=== PATIENT | female | born 1940 | race Caucasian/White ===

== ENCOUNTER → 2016-06-24 | Outpatient (CLI) | payer MEDICARE, MEDICAID ==
[~2016-06-24] MED LIST: BUPIVACAINE HCL 0.25% 30 ML VIAL As Ordered ONE; ISOVUE-M 300 61% 15ML VIAL (Q9967) As Ordered ONE; LIDOCAINE 1% SDV INJ 30 ML VIAL As Ordered ONE; TRIAMCINOLONE ACETONIDE SUSP 40 MG/ML VIAL (J3301) As Ordered ONE
--- NOTE | 2016-06-24 14:35 | REP ---
PARTIAL SI JOINT SERIES: Four views. HISTORY: SI joint injection for pain. 34 seconds of fluoroscopy time is reported. Findings: A sequence of four fluoroscopically obtained intraprocedural spot radiographs of the SI joints document needle position and contrast injection associated with SI joint injection procedure. Signed by Adolfo Henry MD 06/24/2016 02:42 P
--- NOTE | 2016-06-30 00:03 | ECWPNPC ---
PATIENT NAME: ARLINE NEAL : 1940 GENDER: FEMALE VISIT DATE: 06/24/2016 DISCHARGE DATE: 06/24/16 1127 VISIT LOCKED DATE TIME: PHYSICIAN: LUDIVINA BACON RESOURCE: LUDIVINA BACON REASON FOR APPOINTMENT 1. SIJ HISTORY OF PRESENT ILLNESS HISTORY OF PRESENT ILLNESS: PAIN THE PATIENT DESCRIBES THE PAIN... FALL RISK SCREENING: SCREENING :NO FALLS IN THE PAST YEAR CURRENT MEDICATIONS TAKING LEVOTHYROXINE SODIUM 88 MCG TABLET 1 TABLET ON AN EMPTY STOMACH IN THE MORNING ORALLY ONCE A DAY, NOTES: 06/24/16744 TAKING PRAVASTATIN SODIUM 40 MG TABLET 1 TABLET ORALLY ONCE A DAY, NOTES: 06/24/16744 TAKING FERROUS SULFATE 325 (65 FE) MG TABLET 1 TABLET ORALLY ONCE A DAY, NOTES: 06/18/16 0800 TAKING TRAMADOL HCL 50 MG TABLET 1 TAB ORALLY EVERY 6 HOURS NEEDED/MMD#4, NOTES: 06/24/16 0800 TAKING FOLIC ACID 1 MG TABLET ORALLY DAILY, NOTES: 06/24/16744 TAKING ALLOPURINOL 300 MG TABLET 1 TABLET ORALLY ONCE A DAY, NOTES: 06/24/16744 TAKING VITAMIN D 1000 UNIT TABLET 1 TABLET ORALLY ONCE A WEEK, NOTES: 06/18/16 0800 TAKING LISINOPRIL 20 MG TABLET 1 TABLET ORALLY ONCE A DAY, NOTES: 06/24/16744 TAKING OMEPRAZOLE 40 MG CAPSULE DELAYED RELEASE 1 CAPSULE ORALLY ONCE A DAY, NOTES: 06/24/16744 TAKING DOCUSATE SODIUM 100 MG CAPSULE 1 CAPSULE NEEDED ORALLY ONCE A DAY, NOTES: 06/23/16 2100 TAKING METOPROLOL SUCCINATE ER 25 MG TABLET EXTENDED RELEASE 24 HOUR 1 TABLET ORALLY ONCE A DAY, NOTES: 06/24/16 07 TAKING RANITIDINE HCL 150 MG CAPSULE 1 CAPSULE AT BEDTIME ORALLY ONCE A DAY, NOTES: 07/03/16 2300 TAKING METHOTREXATE 2.5 MG TABLET 6 TABLETS ORALLY EVERY MONDAY, NOTES: 06/15/16 0700 TAKING LAUREN ALLERGY 180 MG TABLET 1 TABLET NEEDED ORALLY ONCE A DAY, NOTES: 06/24/16 1700 TAKING TYLENOL EXTRA STRENGTH 500 MG TABLET 2 TABLETS NEEDED ORALLY EVERY 6 HRS, NOTES: > 2 WEEKS TAKING HUMIRA PEN 40 MG/0.8ML KIT 0.8 ML SUBCUTANEOUS EVERY 2 WKS, NOTES: 06/15/16 0799 MEDICATION LIST REVIEWED AND RECONCILED WITH THE PATIENT PAST MEDICAL HISTORY HYPERTENSION HIGH CHOLESTEROL RHEUMATOID ARTHRITIS HYPOTHYROID GERD GOUT PANCREATITIS CAD, HEART ATTACK 06/2015 ALLERGIES ASPIRIN: NAUSEA/VOMITING: SIDE EFFECTS PENICILLIN (FOR ALLERGIES USE ONLY): HIVES: ALLERGY SULFA (FOR ALLERGY USE ONLY): HIVES: ALLERGY CODEINE PHOSPHATE (FOR ALLERGIES USE ONLY): HIVES: ALLERGY SOCIAL HISTORY GENERAL: TOBACCO USE ARE YOU A:NONSMOKER LEARNING BARRIERS / SPECIAL NEEDS ORIENTED TO PLAN OF CARE: PATIENT, PAIN MANAGEMENT PATIENT, ORIENTED TO PLAN OF CARE: PATIENT, PAIN MANAGEMENT PATIENT. NEW PATIENT PAIN DIARY TODAY'S VISITNOTES FROM 0-10, WHAT LEVEL IS YOUR PAIN TODAY?0 PAIN CLINIC PFS, CLERGY, PUBLIC HEALTH REFERRALS PFS REFERRAL NEEDED?NO CLERGY REFERRAL NEEDED?NO PUBLIC HEALTH REFERRAL NEEDED?NO WAS THE PROVIDER NOTIFIED OF ANY PERTINENT INFO?NO PFS REFERRAL NEEDED?NO CLERGY REFERRAL NEEDED?NO PUBLIC HEALTH REFERRAL NEEDED?NO WAS THE PROVIDER NOTIFIED OF ANY PERTINENT INFO?NO REVIEW OF SYSTEMS CONSTITUTIONAL: ANY CHANGE IN YOUR MEDICAL CONDITION? NO . CHILLS NO . FEVER NO . INFECTION: DO YOU HAVE NEW INFECTIONS? NO . DO YOU HAVE HISTORY OF MRSA? NO . MUSCULOSKELETAL: ANY NEW PATTERNS OF PAIN OR NUMBNESS? NO . GASTROENTEROLOGY: ANY NEW CHANGE IN BOWEL CONTROL? NO . GENITOURINARY: ANY NEW CHANGE IN BLADDER CONTROL? NO . IS THERE A CHANCE YOU COULD BE ? NO . HEMATOLOGY/LYMPH: DO YOU TAKE ANY BLOOD THINNERS? (FOR EXAMPLE- COUMADIN, PLAVIX, AGGRENOX, PLATEL, PRADAXA, OR XARELTO) NO . WHEN WAS YOUR LAST DOSE? DATE: TIME: . NEUROLOGY: HAVE YOU FALLEN IN THE PAST 6 MONTHS? NO . ANY NEW EXTREMITY NUMBNESS OR WEAKNESS? NO . CARDIOLOGY: DO YOU HAVE A PACEMAKER OR DEFIBRILLATOR? NO . RESPIRATORY: HAVE YOU BEEN SICK IN THE PAST WEEK? NO . FEVER NO . FLU LIKE SYMPTOMS? NO . COUGH NO . INTEGUMENTARY: DO YOU HAVE ANY RASHES OR OPEN SORES? NO . ALLERGIC/IMMUNO: ARE YOU ALLERGIC TO SHELLFISH OR IV DYE? NO . ANY NEW ALLERGIES? NO . PSYCHIATRIC: DO YOU HAVE THOUGHTS OF HURTING YOURSELF OR SOMEONE ELSE? NO . ARE YOU ABUSED, NEGLECTED, OR IN AN UNSAFE ENVIRONMENT? NO . ENDOCRINOLOGY: ARE YOU DIABETIC? NO . OTHER: DO YOU NEED ANY PRESCRIPTIONS? NO . IF YES, PLEASE LIST: ____ . ANY NEW PROBLEMS WITH YOUR MEDICATIONS? NO . WHEN DID YOU LAST EAT? ____06/23/16 2400 . WHEN DID YOU LAST DRINK? ____07/03/16 0800 . WHAT DID YOU LAST DRINK? ____WATER . NAME OF PERSON DRIVING YOU HOME? ____MARGARET . DO YOU HAVE ANY OTHER QUESTIONS OR CONCERNS NO . REVIEWED BY: PROVIDER: . VITAL SIGNS WT 190 LBS, HT 64.5 IN, BMI 32.11 INDEX, BP 171/69 MM HG, HR 78 /MIN, RR 18 /MIN, TEMP 96.0 F, OXYGEN SAT % 96, NA INITIALS TL 0935, REVIEWED BY: MACHELLE. ASSESSMENTS SACROILIITIS, NOT ELSEWHERE CLASSIFIED - M46.1 (PRIMARY) PROCEDURES PN SI PRE PROCEDURE DIAGNOSIS SACROILIITIS, SACROILIAC JOINT DYSFUNCTION POST PROCEDURE DIAGNOSIS SACROILIITIS, SACROILIAC JOINT DYSFUNCTION PROCEDURE BILATERAL SACROILIAC JOINT BLOCK SURGEON DR. LUDIVINA BACON INVESTIGATIONS MANAGER NONE ANESTHESIA LOCAL PRE PROCEDURE NOTE PATIENT WITH HISTORY OF CHRONIC LOW BACK PAIN. I EVALUATED THE PATIENT AND REVIEWED THE CHART. I WENT OVER THE RISKS, ALTERNATIVES, AND BENEFITS ASSOCIATED WITH THIS PROCEDURE. THE PATIENT WOULD LIKE TO PROCEED AND GAVE CONSENT TO PERFORM THE PROCEDURE. THE PATIENT DENIES UNEXPLAINABLE WEIGHT LOSS, FEVER, CHILLS, OR NEW CHANGES IN URINARY OR BOWEL CONTROL DESCRIPTION OF PROCEDURE THE PATIENT WAS BROUGHT TO THE PROCEDURE ROOM AND PLACED IN THE PRONE POSITION. THE LUMBOSACRAL AREA WAS CLEANED WITH CHLORAPREP SOLUTION AND DRAPED ASEPTICALLY. THE PROCEDURE WAS DONE UNDER STERILE CONDITIONS. I CHECKED LATERALITY AND THE LEVEL WHERE THE PROCEDURE WAS GOING TO BE PERFORMED WITH THE PATIENT AND THE SUPPORTING STAFF AT THE MOMENT OF THE TIME OUT IN THE PROCEDURE ROOM. UNDER FLUOROSCOPIC GUIDANCE, TARGET POINT WAS SELECTED AT THE LOWER BORDER OF THE RIGHT AND LEFT SACROILIAC JOINT. TARGET POINT WAS SELECTED AFTER MEDIAL ROTATION AND TILT OF THE MAGNIFIER OF THE C-ARM. LIDOCAINE WAS USED TO NUMB THE SKIN AND SUBCUTANEOUS TISSUE BELOW IT. A SPINAL NEEDLE, 22-GAUGE, WAS ADVANCED UNDER FLUOROSCOPIC GUIDANCE AND FOLLOWING PATIENT FEEDBACK UNTIL THE TARGET AREA WAS TOUCHED. THE POSITION OF THE NEEDLE WAS VERIFIED WITH AP AND LATERAL VIEWS. AFTER PROPER POSITION OF THE NEEDLE WAS ACHIEVED, ISOVUE M DYE 30%, 0.25 ML, WAS INJECTED SHOWING SPREAD OF THE DYE. THEN, A SOLUTION OF 20 MG OF KENALOG WAS INJECTED IN RIGHT JOINT WITH 3 ML OF BUPIVACAINE 0.125%. THERE WAS NO EVIDENCE OF BLOOD, PARESTHESIA OR CEREBROSPINAL FLUID DURING THE PROCEDURE. THE PATIENT WAS SENT TO THE RECOVERY ROOM. THE PATIENT WAS MOVING THE EXTREMITIES AND DOING WELL. THERE WAS NO COMPLICATION DURING THE PROCEDURE. FLUOROSCOPY TIME WAS 34 SECONDS POST PROCEDURE NOTE THE PATIENT WILL BE SEEN IN A FOLLOW UP IN THE NEXT FEW WEEKS. INSTRUCTIONS WERE GIVEN, QUESTIONS WERE ANSWERED, AND THE PATIENT EXPRESSED UNDERSTANDING AND AGREED WITH THE PLAN. I, TRISTAN ROMERO, DOCUMENTED THE ABOVE INFORMATION ACTING A SCRIBE FOR DR. BACON. I, DR. BACON, HAVE REVIEWED THE ABOVE DOCUMENT, SCRIBED BY TRISTAN ROMERO, AND I VERIFY THAT IT IS [facility] FLUORO GUIDANCE (PAIN)[id number] PROCEDURE CODES 36730 INJECT SACROILIAC JOINT 6045F RADXPS IN END [id number] PXD FOLLOW UP 3 WEEKS ELECTRONICALLY SIGNED BY LUDIVINA BACON MD ON 06/29/2016 AT 10:07 PM EST DISCLAIMER : THIS IS A VISIT SUMMARY EXTRACTED FROM THE [employer] CHART. IT IS NOT A COPY OF THE [employer] PROGRESS NOTE. MTDD
== END ==
LOC: M PAIN 09:40
PROVIDERS: ATTEND Anesthesiology
DX: G89.29 Other chronic pain (principal); M46.1 Sacroiliitis, not elsewhere classified; M53.88 Other specified dorsopathies, sacral and sacrococcygeal region; I10 Essential (primary) hypertension; E78.00 Pure hypercholesterolemia, unspecified; I25.10 Atherosclerotic heart disease of native coronary artery without angina pectoris; M06.9 Rheumatoid arthritis, unspecified; E03.9 Hypothyroidism, unspecified; K21.9 Gastro-esophageal reflux disease without esophagitis; Z86.79 Personal history of other diseases of the circulatory system; Z87.39 Personal history of other diseases of the musculoskeletal system and connective tissue; Z88.6 Allergy status to analgesic agent; Z88.0 Allergy status to penicillin; Z88.2 Allergy status to sulfonamides; Z88.5 Allergy status to narcotic agent; Z79.891 Long term (current) use of opiate analgesic; Z79.899 Other long term (current) drug therapy
CPT/HCPCS: G0260; J3301; Q9967

== ENCOUNTER → 2016-07-15 | Outpatient (CLI) | payer MEDICARE, MEDICAID ==
--- NOTE | 2016-07-16 00:10 | ECWPNPC ---
PATIENT NAME: ARLINE NEAL : 1940 GENDER: FEMALE VISIT DATE: 07/15/2016 DISCHARGE DATE: 07/15/16 1156 VISIT LOCKED DATE TIME: PHYSICIAN: JANNA LUNA RESOURCE: JANNA LUNA REASON FOR APPOINTMENT 1. BACK/HIP HISTORY OF PRESENT ILLNESS HISTORY OF PRESENT ILLNESS: HERE FOR POST PROCEDURE F/U.HAD BILAT. SIJ ON 06-24-16.REPORTS 7-10 DAYS OF MARKED IMPROVEMENT POST PROCEDURE THEN PAIN RETURNED TO BASELINE.PAIN IS LOCATED IN RIGHT HIP.DESCRIBES PAIN INTERMITTENT ACHING.RATING PAIN VAS 5/10.STATES DR. QUINN IS PLANNING RIGHT HIP REPLACEMENT .PATIENT DOESNT WANT ANY MORE INJECTIONS. FALL RISK SCREENING: SCREENING :NO FALLS IN THE PAST YEAR CURRENT MEDICATIONS TAKING LEVOTHYROXINE SODIUM 88 MCG TABLET 1 TABLET ON AN EMPTY STOMACH IN THE MORNING ORALLY ONCE A DAY, NOTES: 06/24/16 07 TAKING PRAVASTATIN SODIUM 40 MG TABLET 1 TABLET ORALLY ONCE A DAY, NOTES: 06/24/16744 TAKING FERROUS SULFATE 325 (65 FE) MG TABLET 1 TABLET ORALLY ONCE A DAY, NOTES: 06/18/16 0800 TAKING TRAMADOL HCL 50 MG TABLET 1 TAB ORALLY EVERY 6 HOURS NEEDED/MMD#4, NOTES: 06/24/16 0800 TAKING FOLIC ACID 1 MG TABLET ORALLY DAILY, NOTES: 06/24/16 07 TAKING ALLOPURINOL 300 MG TABLET 1 TABLET ORALLY ONCE A DAY, NOTES: 06/24/16 07 TAKING VITAMIN D 1000 UNIT TABLET 1 TABLET ORALLY ONCE A WEEK, NOTES: 06/18/16 0800 TAKING LISINOPRIL 20 MG TABLET 1 TABLET ORALLY ONCE A DAY, NOTES: 06/24/16744 TAKING OMEPRAZOLE 40 MG CAPSULE DELAYED RELEASE 1 CAPSULE ORALLY ONCE A DAY, NOTES: 06/24/16744 TAKING DOCUSATE SODIUM 100 MG CAPSULE 1 CAPSULE NEEDED ORALLY ONCE A DAY, NOTES: 06/23/16 2100 TAKING METOPROLOL SUCCINATE ER 25 MG TABLET EXTENDED RELEASE 24 HOUR 1 TABLET ORALLY ONCE A DAY, NOTES: 06/24/16 07 TAKING RANITIDINE HCL 150 MG CAPSULE 1 CAPSULE AT BEDTIME ORALLY ONCE A DAY, NOTES: 07/03/16 2300 TAKING METHOTREXATE 2.5 MG TABLET 6 TABLETS ORALLY EVERY MONDAY, NOTES: 06/15/16 0700 TAKING LAUREN ALLERGY 180 MG TABLET 1 TABLET NEEDED ORALLY ONCE A DAY, NOTES: 06/24/16 1700 TAKING TYLENOL EXTRA STRENGTH 500 MG TABLET 2 TABLETS NEEDED ORALLY EVERY 6 HRS, NOTES: > 2 WEEKS TAKING HUMIRA PEN 40 MG/0.8ML KIT 0.8 ML SUBCUTANEOUS EVERY 2 WKS, NOTES: 06/15/16 0799 MEDICATION LIST REVIEWED AND RECONCILED WITH THE PATIENT PAST MEDICAL HISTORY HYPERTENSION HIGH CHOLESTEROL RHEUMATOID ARTHRITIS HYPOTHYROID GERD GOUT PANCREATITIS CAD, HEART ATTACK 06/2015 ALLERGIES ASPIRIN: NAUSEA/VOMITING: SIDE EFFECTS PENICILLIN (FOR ALLERGIES USE ONLY): HIVES: ALLERGY SULFA (FOR ALLERGY USE ONLY): HIVES: ALLERGY CODEINE PHOSPHATE (FOR ALLERGIES USE ONLY): HIVES: ALLERGY SOCIAL HISTORY GENERAL: TOBACCO USE ARE YOU A:NONSMOKER LEARNING BARRIERS / SPECIAL NEEDS ORIENTED TO PLAN OF CARE: PATIENT, PAIN MANAGEMENT PATIENT, ORIENTED TO PLAN OF CARE: PATIENT, PAIN MANAGEMENT PATIENT. NEW PATIENT PAIN DIARY TODAY'S VISITNOTES FROM 0-10, WHAT LEVEL IS YOUR PAIN TODAY?0 PAIN CLINIC PFS, CLERGY, PUBLIC HEALTH REFERRALS PFS REFERRAL NEEDED?NO CLERGY REFERRAL NEEDED?NO PUBLIC HEALTH REFERRAL NEEDED?NO WAS THE PROVIDER NOTIFIED OF ANY PERTINENT INFO?NO PFS REFERRAL NEEDED?NO CLERGY REFERRAL NEEDED?NO PUBLIC HEALTH REFERRAL NEEDED?NO WAS THE PROVIDER NOTIFIED OF ANY PERTINENT INFO?NO REVIEW OF SYSTEMS CONSTITUTIONAL: ANY CHANGE IN YOUR MEDICAL CONDITION? NO . CHILLS NO . FEVER NO . INFECTION: DO YOU HAVE NEW INFECTIONS? NO . DO YOU HAVE HISTORY OF MRSA? NO . MUSCULOSKELETAL: ANY NEW PATTERNS OF PAIN OR NUMBNESS? YES PT REPORTS 1-2 WEEK IMPROVEMENT AFTER SIJ'S DONE 06/24/16, THEN BACK TO BASELINE PAIN LEVEL.&NBSP;. GASTROENTEROLOGY: ANY NEW CHANGE IN BOWEL CONTROL? NO . GENITOURINARY: ANY NEW CHANGE IN BLADDER CONTROL? NO . IS THERE A CHANCE YOU COULD BE ? NO . HEMATOLOGY/LYMPH: DO YOU TAKE ANY BLOOD THINNERS? (FOR EXAMPLE- COUMADIN, PLAVIX, AGGRENOX, PLATEL, PRADAXA, OR XARELTO) NO . WHEN WAS YOUR LAST DOSE? DATE: TIME: . NEUROLOGY: HAVE YOU FALLEN IN THE PAST 6 MONTHS? NO . ANY NEW EXTREMITY NUMBNESS OR WEAKNESS? NO . CARDIOLOGY: DO YOU HAVE A PACEMAKER OR DEFIBRILLATOR? NO . RESPIRATORY: HAVE YOU BEEN SICK IN THE PAST WEEK? NO . FEVER NO . FLU LIKE SYMPTOMS? NO . COUGH NO . INTEGUMENTARY: DO YOU HAVE ANY RASHES OR OPEN SORES? NO . ALLERGIC/IMMUNO: ARE YOU ALLERGIC TO SHELLFISH OR IV DYE? NO . ANY NEW ALLERGIES? NO . PSYCHIATRIC: DO YOU HAVE THOUGHTS OF HURTING YOURSELF OR SOMEONE ELSE? NO . ARE YOU ABUSED, NEGLECTED, OR IN AN UNSAFE ENVIRONMENT? NO . ENDOCRINOLOGY: ARE YOU DIABETIC? YES . OTHER: DO YOU NEED ANY PRESCRIPTIONS? NO . IF YES, PLEASE LIST: ____ . ANY NEW PROBLEMS WITH YOUR MEDICATIONS? NO . WHEN DID YOU LAST EAT? ____ . WHEN DID YOU LAST DRINK? ____ . WHAT DID YOU LAST DRINK? ____ . NAME OF PERSON DRIVING YOU HOME? ____ . DO YOU HAVE ANY OTHER QUESTIONS OR CONCERNS NO . REVIEWED BY: PROVIDER: JANNA CUELLAR . VITAL SIGNS WT 185 LBS, HT 64.5 IN, BMI 31.26 INDEX, BP 144/87 MM HG, HR 72 /MIN, RR 16 /MIN, TEMP 98.2 F, OXYGEN SAT % 95%, SAFE IN ENV? (Y/N) YES, NA INITIALS PA 11:36, REVIEWED BY: MACHELLE. EXAMINATION GENERAL EXAMINATION: LUNGS:LUNG SOUNDS ARE CLEAR. HEART:HEART RATE REGULAR. MUSCULOSKELETAL:*, MUSCLE STRENGTH TESTING 3/5 RIGHT.5/5 LEFT., PALPATION: NEGATIVE FOR PAIN OVER L/S SPINE. NEGATIVE FOR PAIN OVER L/S PARASPINALS.POINT TENDERNESS OVER RIGHT SIJ.TENDERNESS WITH PALPATION OVER RIGHT HIP.. DIAGNOSTIC: . 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 IT IS NOT A COPY OF THE [employer] PROGRESS NOTE. MTDD
== END ==
LOC: M PAIN 11:00
PROVIDERS: ATTEND Nurse Practitioner Family
DX: Z09 Encounter for follow-up examination after completed treatment for conditions other than malignant neoplasm (principal); M51.16 Intervertebral disc disorders with radiculopathy, lumbar region; M53.3 Sacrococcygeal disorders, not elsewhere classified; M06.9 Rheumatoid arthritis, unspecified; I10 Essential (primary) hypertension; E78.00 Pure hypercholesterolemia, unspecified; E03.9 Hypothyroidism, unspecified; K21.9 Gastro-esophageal reflux disease without esophagitis; M10.9 Gout, unspecified; I25.10 Atherosclerotic heart disease of native coronary artery without angina pectoris; I25.2 Old myocardial infarction; Z88.0 Allergy status to penicillin; Z88.2 Allergy status to sulfonamides; Z88.6 Allergy status to analgesic agent; Z88.5 Allergy status to narcotic agent; Z79.891 Long term (current) use of opiate analgesic; Z79.899 Other long term (current) drug therapy; E11.9 Type 2 diabetes mellitus without complications

== ENCOUNTER → 2016-08-03 | Outpatient (CLI) | payer MEDICARE, MEDICAID ==
[~2016-08-03] MED LIST changes: +ALLE180T33 PO; +AMIO200T37 PO; -BUPIVACAINE HCL 0.25% 30 ML VIAL As Ordered ONE; +FOLI1TAB2 PO; +HUMI40KI2 SC; -ISOVUE-M 300 61% 15ML VIAL (Q9967) As Ordered ONE; +LEVO88TA3 PO; -LIDOCAINE 1% SDV INJ 30 ML VIAL As Ordered ONE; +LISI10TA4 PO; +MECL12.575 PO; +METH2.5TA PO; +METO25TA74 PO; +MULT1TAB9 PO; +OMEP40CA2 PO; +PRAV40TA2 PO; +RANI1TAB6 PO; +SENN8.6C PO; +TRAM50TA2 PO; -TRIAMCINOLONE ACETONIDE SUSP 40 MG/ML VIAL (J3301) As Ordered ONE; +TYLE500T78 PO; +VITA-112 PO; +VOLT1GEL24 TD; +ZYLO300T4 PO
[2016-08-03 11:59] LABS: MEAN CORPUSCULAR HEMOGLOBIN 31.2 pg (27.0-33.0); MEAN CORPUSCULAR HGB CONC 33.1 g/dl (32.0-36.5); MEAN CORPUSCULAR VOLUME 94.1 fl (80.0-96.0); RED CELL DISTRIBUTION WIDTH 13.2 % (11.5-14.5); WHITE BLOOD COUNT 11.8 K/mm3 (4.0-10.0)
[2016-08-03 12:01] LABS: CALCIUM OXALATE CRYSTALS SMALL
[2016-08-03 12:02] LABS: INR 0.99
[2016-08-03 12:21] LABS: ALBUMIN 3.8 GM/DL (3.2-5.2); ALBUMIN/GLOBULIN RATIO 1.06 (1.00-1.93); ALKALINE PHOSPHATASE 88 U/L (45-117); ALT/SGPT 13 U/L (12-78); ANION GAP 8 MEQ/L (8-16); AST/SGOT 20 U/L (15-37); BILIRUBIN,TOTAL 0.5 MG/DL (0.2-1.0); BLOOD UREA NITROGEN 14 MG/DL (7-18); CALCIUM LEVEL 8.9 MG/DL (8.8-10.2); CARBON DIOXIDE LEVEL 26 MEQ/L (21-32); CHLORIDE LEVEL 99 MEQ/L (98-107); CREATININE FOR GFR 0.71 MG/DL (0.55-1.02); GLOMERULAR FILTRATION RATE > 60.0 (>39); GLUCOSE, FASTING 97 MG/DL (83-110); SODIUM LEVEL 133 MEQ/L (136-145); TOTAL PROTEIN 7.4 GM/DL (6.4-8.2)
--- NOTE | 2016-08-03 13:36 | REP ---
Chest two views HISTORY: Hyperthyroidism Comparison: 02/20/2007 There is elevation of the right hemidiaphragm. The lungs are clear. The heart is normal in size. The pulmonary vasculature is normal in appearance. A hiatal hernia is present. The bony structure is intact. A cardiac pacemaker is present. IMPRESSION: No acute disease. Signed by Ariel Boyd MD 08/03/2016 01:29 P
== END ==
LOC: M ADMPAT 09:30
PROVIDERS: ATTEND Orthopaedic Surgery
DX: Z01.818 Encounter for other preprocedural examination (principal); M13.851 Other specified arthritis, right hip; E05.90 Thyrotoxicosis, unspecified without thyrotoxic crisis or storm; Z95.0 Presence of cardiac pacemaker; Z79.01 Long term (current) use of anticoagulants; Z79.899 Other long term (current) drug therapy

== ENCOUNTER 2016-08-15 12:26 | Inpatient (IN) | payer OTHER, MEDICAID ==
[2016-08-03 11:47] VITALS: BP 180/104
--- NOTE | 2016-08-12 07:14 | HPE ---
DATE OF ADMISSION: 08/15/2016 CHIEF COMPLAINT: Right hip pain. HISTORY OF PRESENT ILLNESS: This is a pleasant 75-year-old female with progressively worsening right hip pain and stiffness. She has failed to improve with conservative treatment. She has elected for surgery for her continued symptoms. She has pain with weightbearing activities and her activities of daily living. X-rays of her hip are notable for advanced osteoarthritis of the right hip joint. She has consented for a right total hip arthroplasty by Dr. Michael Lerma. Medical optimization was performed by Dr. Cammy Spring. ALLERGIES: To PENICILLIN, VANCOMYCIN and SULFA drugs. CURRENT MEDICATIONS: - Vitamin D3 1000 units a day - ranitidine HCl 150 mg twice a day - multivitamin complete once a day - folic acid 1 mg every day - allopurinol 300 mg every day - Voltaren gel 1% applied to affected area three times a day - tramadol 50 mg one every 4-6 hours - meclizine 12.5 mg every day for vertigo - amiodarone 200 mg a day - Synthroid 88 mcg a day - pravastatin sodium 40 mg a day - lisinopril 10 mg a day - sublingual nitro as needed - omeprazole 40 mg a day - docusate sodium 100 mg a day - Senna 8.6 mg every day The patient also uses Humira once every 2 weeks. MEDICAL HISTORY: High blood pressure, heart disease, high cholesterol, history of heart attack and rheumatoid arthritis. PAST SURGICAL HISTORY: Insertion of pacemaker, bilateral total knee arthroplasties, hysterectomy, left elbow replacement, bilateral hand stents. SOCIAL HISTORY: The patient is retired. Does not smoke or drink. FAMILY HISTORY: Is noncontributory. REVIEW OF SYSTEMS: This patient denies chest pain, heart palpitations, cough, wheezing, difficulty breathing and shortness of breath. She denies abdominal pain, nausea, vomiting, diarrhea or constipation. She denies recent upper respiratory infection or urinary tract infection symptoms. She does complain of persistent pain in her right hip and pain with weightbearing activities in the right hip. PHYSICAL EXAMINATION: GENERAL: She is well-nourished, well-developed in no acute distress, adult female. She ambulates with a significant limp favoring the right lower extremity. She is using a walker for ambulation. VITAL SIGNS: She is 60-1/2 inches tall, weighs 192 pounds with a temperature of 98.6, blood pressure 150/104, pulse of 80, respirations of 16. Neck was supple without adenopathy or jugular venous distension. There were no carotid bruits appreciated upon auscultation. LUNGS: Were clear to auscultation without rales or wheeze. HEART: Regular rate and rhythm. ABDOMEN: Bowel sounds were present. EXTREMITIES: Examination of the hip revealed intact skin. She had decreased range of motion with internal and external rotation secondary to pain and stiffness. The limb is neurovascularly intact. LABORATORY DATA: UA showed a 3+ loop esterase, 1+ blood, 17 white blood cells 6 red blood cells and a small amount of amorphous sediment with a specific gravity 1.012. Urine culture showed less contaminated specimen. Nasal and sinus culture showed staph aureus. Pro time 13.2, INR 0.99, glucose 97, BUN 14, creatinine 0.701, sodium 133, potassium 4.0. CBC showed a white count of 11.8, otherwise within normal limits. Sed rate was 35. Chest x-ray showed no acute cardiopulmonary disease processes. The patient had nuclear stress test with normal myocardial perfusion and left ventricular function. I do not have a copy of her current EMG. IMPRESSION: 1. Symptomatic osteoarthritis of the right hip joint. 2. 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 PLAN: She was placed on Hibiclens scrub and Bactroban ointment to the nares. She is consented for a right total hip arthroplasty by Dr. Michael Lerma.
[~2016-08-15] VITALS: Ht 165.1 cm; Wt 90.5 kg
[2016-08-15] MEDS: LISINOPRIL 10 MG TAB PO SCH (09:00)
[2016-08-15] MEDS ORDERED: COUM1TAB17 PO (12:56)
[2016-08-15] MEDS ORDERED: LIDOCAINE 2% INJ 100 MG/5 ML SDV (FOR ANES.) As Ordered ONE (12:59)
[2016-08-15] MEDS ORDERED: PROPOFOL 200 MG/20 ML VIAL As Ordered ONE (12:59)
[2016-08-15] MEDS ORDERED: MIDAZOLAM INJ 2 MG/2 ML VIAL (J2250) As Ordered ONE (12:59)
[2016-08-15] MEDS ORDERED: LR 1,000 ML IV SCH ×4 (13:00→17:00)
[2016-08-15] MEDS ORDERED: fentaNYL 100 MCG/2 ML INJECTION (J3010) As Ordered ONE ×3 (13:00→15:05)
[2016-08-15] MEDS ORDERED: CLINDAMYCIN 600 MG in APPROPRIATE DILUENT 1 EA IV ONE (14:00)
[2016-08-15] MEDS ORDERED: TRANEXAMIC ACID 100 MG/ML 10ML VIAL As Ordered ONE (14:14)
[2016-08-15] MEDS ORDERED: BUPIVACAINE HCL 0.25% 30 ML VIAL As Ordered ONE (14:15)
[2016-08-15] MEDS ORDERED: EPINEPHrine INJ 1 MG/ML 1ML VIAL/AMP As Ordered ONE ×2 (14:15→14:18)
[2016-08-15] MEDS ORDERED: CLINDAMYCIN INJ 900MG/6ML VIAL As Ordered ONE (14:15)
[2016-08-15] MEDS ORDERED: ePHEDrine SULFATE 25 MG/5 ML(5MG/ML) SYRINGE As Ordered ONE ×2 (15:12→15:46)
[2016-08-15] MEDS ORDERED: PHENYLephrine HCL 500 MCG/5 ML (100MCG/ML) SYRINGE (J2370) As Ordered ONE (15:13)
[2016-08-15] MEDS ORDERED: MORPHINE PCA 1MG/ML 100ML CADD As Ordered ONE (16:23)
[2016-08-15] MEDS ORDERED: PERCOCET 5MG/325MG TAB PO PRN (17:00)
[2016-08-15] MEDS ORDERED: fentaNYL 100 MCG/2 ML INJECTION (J3010) IV PRN (17:00)
[2016-08-15] MEDS ORDERED: ONDANSETRON 4MG/2ML VIAL (J2405) IV PRN ×3 (17:00)
[2016-08-15] MEDS ORDERED: EPIDURAL/PCA KEYS XX PRN (17:00)
[2016-08-15] MEDS ORDERED: METOCLOPRAMIDE INJ 10MG/2ML VIAL (J2765) IV PRN (17:00)
[2016-08-15] MEDS ORDERED: MORPHINE PCA 1MG/ML 100ML CADD IV PRN (17:00)
[2016-08-15] MEDS ORDERED: diphenhydrAMINE INJ 50MG/ML VIAL (J1200) IV PRN (17:00)
[2016-08-15] MEDS ORDERED: WARFARIN SOD 5 MG TAB PO SCH (17:00)
[2016-08-15] MEDS ORDERED: NALOXONE INJ 0.4 MG/1 ML VIAL (J2310) IV PRN (17:00)
[2016-08-15] MEDS ORDERED: FLEET ENEMA PR PRN (17:00)
[2016-08-15] MEDS ORDERED: NALBUPHINE HCL 10 MG/ML AMP (J2300) IV PRN (17:00)
[2016-08-15] MEDS ORDERED: PATIENT IS CURRENTLY ON AN ON-Q PAIN BUSTER PAIN RELIEF SYSTEM XX SCH (17:00)
[2016-08-15 18:00] VITALS: BP 154/78
[2016-08-15 18:30] VITALS: BP 133/63
--- NOTE | 2016-08-15 19:06 | CR.PDOC ---
[facility] Consultation Consultation HOSPITALIST CONSULT NOTE Date of consult: 08/15/2016 Referring Provider: Dr. Lerma Reason for Consult: Medical management HPI: 75-year-old female with hypertension, coronary artery disease with history of MT status post cardiac stents and CABG, hyperlipidemia, rheumatoid arthritis , gout, hypothyroidism who underwent right total hip arthroplasty today with Dr. Lerma. By report, there were no complications. The patient is seen in the recovery room after surgery, and she has no complaints, and states that she currently feels well. Past medical history: Hypertension, coronary artery disease with history of MT status post cardiac stents and CABG, hyperlipidemia, rheumatoid arthritis, gout , hypothyroidism Past surgical history: Pacemaker placement, CABG, cardiac stents, left elbow replacement, bilateral hand stents, bilateral total knee arthroplasties, hysterectomy Family history: Rheumatoid arthritis, coronary artery disease, cancer Social history: The patient currently lives with her younger sister. She denies any tobacco or alcohol use Allergies: Aspirin, codeine, penicillins, sulfa drugs, tomatoes, vancomycin Review of systems: General: Negative for fever and chills Eyes: Negative For vision changes and ocular discharge ENT: Negative for sore throat. Positive for nosebleed last week Cardiovascular: Negative for chest pain and palpitations Respiratory: Negative for cough and shortness of breath GI: Negative for nausea, vomiting, constipation. Positive for diarrhea Musculoskeletal: Negative for back and neck pain Skin: Negative for rash Neuro: Negative for headache, numbness, tingling. Positive for dizziness Psych: Negative for suicidal ideation and depression Endocrine:. Negative for polyuria : Negative for dysuria Heme: Negative for bruising and bleeding Home meds: See below Physical exam: Vital signs: Vital Sign - Last 24 Hours 08/15/16 08/15/16 08/15/16 08/15/16 12:57 16:28 16:45 17:00 Temp 98.0 97.9 97.0 Pulse 79 92 81 79 Resp 20 16 B/P 155/96 103/58 126/59 135/70 Pulse Ox 94 97 100 99 O2 Delivery Nasal Cannula Nasal Cannula Nasal Cannula O2 Flow Rate 3 3 3 08/15/16 08/15/16 08/15/16 08/15/16 17:15 17:30 18:00 18:00 Temp 97.2 Pulse 82 82 77 Resp 16 16 14 18 B/P 141/74 141/74 154/78 Pulse Ox 99 99 95 96 O2 Delivery Nasal Cannula Nasal Cannula Nasal Cannula Nasal Cannula O2 Flow Rate 2 2 2.0 2.0 08/15/16 18:30 Temp 97.1 Pulse 71 Resp 13 B/P 133/63 Pulse Ox 97 O2 Delivery Nasal Cannula O2 Flow Rate 2.0 Gen.: awake, alert, no acute distress Eyes: Extraocular movements intact, normal sclera ENT: Moist mucous membranes Cardiovascular: RRR, no murmurs rubs or gallops Lungs: clear to auscultation bilaterally, no rales, rhonchi, or wheeze Abdomen: Soft, NT/ND, normal BS Extremities: Pedal pulses intact Neuro: alert and oriented 3, normal speech, no focal deficits Psych: Normal mood with congruent affect Labs and radiology: No labs to review Assessment and plan: 75-year-old female with hypertension, coronary artery disease with history of MT status post cardiac stents and CABG, hyperlipidemia, rheumatoid arthritis, gout, hypothyroidism who underwent right total hip arthroplasty today with Dr. Lerma. We have been consult for medical management. 1. Hypertension: Blood pressure is currently controlled, we will continue home NBA inhibitor and beta nancy in the morning. 2. Coronary artery disease with history of MT status post cardiac stents and CABG, hyperlipidemia: The patient currently denies chest pain. Continue home beta nancy and statin. Patient does not report being on aspirin at home, instead, she reports being on Coumadin. It is unclear why she is on Coumadin. Her Coumadin can be resumed when her surgical team is okay with that. 3. Rheumatoid arthritis: The patient also takes Humira every other week, which has not been ordered at this point. We will have to verify with the patient when her next dose is due. Additionally, the patient takes methotrexate weekly, and again we are unclear when her next dose is due. This will have to be confirmed, and can be restarted tomorrow. 4. Gout: Continue home allopurinol. 5. Hypothyroidism: Continue home Synthroid. 6. Coumadin use and amiodarone use: The patient tells me that she had a pacemaker placed, but she was unable to tell me why the pacemaker was placed. However, she reports being on amiodarone and Coumadin at home, and I suspect that potentially she has a history of underlying A. fib. We will continue the patient on her home amiodarone. Her Coumadin can be resumed when her surgical team feels it is appropriate. We will follow daily INRs. DVT prophylaxis: As per her surgical team Thank you for this consult. Dr. Riddle will continue to follow along with you. Vital Signs/I&O Vital Signs Date Time Temp Pulse Resp B/P Pulse Ox O2 Delivery O2 Flow Rate FiO2 08/15/16 18:30 97.1 71 13 133/63 97 Nasal Cannula 2.0 Allergies Coded Allergies: Vancomycin (Unverified Allergy, Severe, rash, 08/03/16) Penicillins (Verified Allergy, Unknown, RASH, 09/03/12) Penicillins Cross Reactors (Verified Allergy, Unknown, RASH, 09/03/12) Sulfa Drugs (Verified Allergy, Unknown, RASH, 09/03/12) Sulfa Drugs Cross Reactors (Verified Allergy, Unknown, RASH, 09/03/12) Tomato (Verified Allergy, Unknown, RASH, 09/03/12) Codeine (Verified Adverse Reaction, Mild, N/V, 08/03/16) N/V Aspirin (Verified Adverse Reaction, Unknown, SICK TO STOMACH, 08/03/16) Home Medications Scheduled (Multivitamin Adults 50+) 1 Tab Tab 1 TAB PO DAILY (Reported) (Humira Pen) 40 Mg/0.8 Ml Kit 40 MG SC Q2WK (Reported) Allopurinol (Zyloprim) 300 Mg Tab 300 MG PO DAILY (Reported) Amiodarone HCl (Amiodarone Hydrochloride) 200 Mg Tab 100 MG PO BID (Reported) Cholecalciferol (Vitamin D-1000) 1,000 Unit Tab 1,000 UNIT PO DAILY (Reported) Fexofenadine Hydrochloride (Anu Allergy) 180 Mg Tab 180 MG PO DAILY ( Reported) Folic Acid (Folic Acid) 1 Mg Tab 1 MG PO DAILY (Reported) Levothyroxine Sodium (Synthroid) 88 Mcg Tab 88 MCG PO DAILY (Reported) Lisinopril (Lisinopril) 10 Mg Tab 10 MG PO DAILY (Reported) Meclizine HCl (Meclizine HCl) 12.5 Mg Tab 12.5 MG PO DAILY (Reported) Methotrexate (Methotrexate) 2.5 Mg Tab 15 MG PO QWEEK (Reported) Metoprolol Succinate (Metoprolol Succinate ER) 25 Mg Tab 25 MG PO DAILY ( Reported) Omeprazole (Omeprazole) 40 Mg Cap 40 MG PO DAILY (Reported) Pravastatin Sod (Pravastatin Sodium) 40 Mg Tab 40 MG PO DAILY (Reported) Ranitidine HCl (Ranitidine [address]) 150 Mg Tab 1 TAB PO BID (Reported) Warfarin Sod (Coumadin) 5 Mg Tab 5 MG PO 1T (Reported) Scheduled PRN (Voltaren) 1 % Gel 1 % TD PRN PRN PRN PAIN (Reported) Acetaminophen (Tylenol Extra Strength) 500 Mg Tab 1,000 MG PO PRN PRN PRN PAIN ( Reported) Senna (Senna) 8.6 Mg Cap 1 CAP PO PRN PRN PRN CONSTIPATION (Reported) Tramadol HCl (Tramadol HCl) 50 Mg Tab 50 MG PO PRN PRN PRN PAIN (Reported) FARHAN ART Aug 15, 2016 19:06
[2016-08-15 19:30] VITALS: BP 127/67
[2016-08-15 20:30] VITALS: BP 135/62
[2016-08-15] MEDS: AMIODARONE 100MG TABLET (PACERONE) PO SCH (21:00)
[2016-08-15] MEDS: FEXOFENADINE 60 MG TAB PO SCH (21:16)
[2016-08-15] MEDS: FAMOTIDINE 20 MG TAB PO SCH (21:16)
[2016-08-15 21:30] VITALS: BP 129/62
[2016-08-15 22:30] VITALS: BP 125/63
[2016-08-15] MEDS: CLINDAMYCIN 600 MG in APPROPRIATE DILUENT 1 EA IV SCH (22:53)
[2016-08-16] VITALS (7 sets, daily range): BP systolic 99–127; BP diastolic 50–77; O2SAT 91–95
[2016-08-16] MEDS: LEVOTHYROXINE 0.088 MG TAB (88 MCG) PO SCH (06:05)
[2016-08-16] MEDS: CLINDAMYCIN 600 MG in APPROPRIATE DILUENT 1 EA IV SCH (06:05)
[2016-08-16 07:24] LABS: BASO % 0.3 % (0.0-1.0); EOS % 0.3 % (0.0-3.0); INR 1.17; LARGE UNSTAINED CELL # 0.2 K/mm3 (0.0-0.4); LARGE UNSTAINED CELL % 1.4 % (0.0-4.0); LYMPH # 2.4 K/mm3 (1.5-4.5); LYMPH % 15.3 % (24.0-44.0); MEAN CORPUSCULAR HEMOGLOBIN 31.2 pg (27.0-33.0); MEAN CORPUSCULAR VOLUME 97.5 fl (80.0-96.0); MONO # 1.1 K/mm3 (0.0-0.8); MONO % 7.1 % (0.0-5.0); NEUTROPHILS # 11.7 K/mm3 (1.8-7.7); NEUTROPHILS % 75.6 % (36.0-66.0); PLATELET COUNT, AUTOMATED 247 k/mm3 (150-450); RED CELL DISTRIBUTION WIDTH 13.9 % (11.5-14.5); WHITE BLOOD COUNT 15.4 K/mm3 (4.0-10.0)
[2016-08-16 07:35] LABS: CALCIUM LEVEL 8.3 MG/DL (8.8-10.2); CREATININE FOR GFR 1.49 MG/DL (0.55-1.02); GLOMERULAR FILTRATION RATE 36.1 (>39); MAGNESIUM LEVEL 1.3 MG/DL (1.8-2.4); POTASSIUM SERUM 4.5 MEQ/L (3.5-5.1)
[2016-08-16] MEDS: OMEPRAZOLE 20 MG CAP PO SCH (09:00)
[2016-08-16] MEDS: SENOKOT S TAB PO SCH ×2 (09:00→22:28)
[2016-08-16] MEDS: MOM 30ML SUSPENSION UDC PO SCH (09:00)
[2016-08-16] MEDS: LISINOPRIL 10 MG TAB PO SCH (09:00)
[2016-08-16] MEDS: AMIODARONE 100MG TABLET (PACERONE) PO SCH ×2 (09:00→22:28)
[2016-08-16] MEDS: METOPROLOL SUCC *XL* 25MG TAB (TopROL *XL*) PO SCH (09:00)
[2016-08-16] MEDS: MIRALAX *UNIT DOSE* 17GM PACKET PO SCH (09:33)
[2016-08-16] MEDS: FAMOTIDINE 20 MG TAB PO SCH ×2 (09:34→22:28)
[2016-08-16] MEDS: PRAVASTATIN 20 MG TAB PO SCH (09:34)
[2016-08-16] MEDS: OCUVITE 1 TAB PO SCH (09:34)
[2016-08-16] MEDS: ALLOPURINOL 300 MG TAB PO SCH (09:34)
[2016-08-16] MEDS: FOLIC ACID 1 MG TAB PO SCH (09:36)
--- NOTE | 2016-08-16 10:49 | RO ---
DATE OF PROCEDURE: 08/15/2016 PREOPERATIVE DIAGNOSES: Right hip osteoarthritis and rheumatoid arthritis. POSTOPERATIVE DIAGNOSES: Right hip osteoarthritis and rheumatoid arthritis. PROCEDURE: Right total hip arthroplasty using a [place] size 5 with a +1 32 head and a 50 cup Ultrex liner. SURGEON: Michael Lerma MD AGENT BROKER: LIZBETH Ponce ANESTHESIA: Spinal ESTIMATED BLOOD LOSS: 200. COMPLICATIONS: None. INDICATIONS: This is an obese woman, 75 years of age, who has had gradually worsening right hip pain. She had failed conservative management and wished to go ahead with surgical treatment. She understood the nature of procedure, risks of bleeding, infection, damage to nerves, vessels, persistent pain, wear loosening, dislocation, leg length inequality, blood clots, medical problems, . DESCRIPTION OF PROCEDURE: Patient taken to the operating room and placed in the left lateral decubitus position. All areas were padded appropriately. Spinal anesthesia was induced. We prepped and draped the hip in the usual sterile fashion. Time-out was performed. I then created a longitudinal incision over the lateral aspect of the right hip. Sharp dissection was carried down through subcutaneous tissue until the fascia was encountered. Her soft tissues were very poor quality and very indistinct. The fascia akin was thin and it was difficult to identify bony landmarks, but I incised this with the cautery and her abductor was largely replaced with fat. I divided about the fatty muscular player piano technician and gradually externally rotated the femur exposing the femoral neck. Once the dissection was completed, I dislocated the hip without difficulty with the warehouse assistant's help. There was a fair amount of fluid in the hip joint. I then used a canal initiating reamer, followed by the canal finding reamer, the lateralizing reamer and then sequentially reamed up to a size 5, which seemed to have good bony purchase. I cut the neck off at about a fingerbreadth up from the lesser trochanter and removed the head. We then directed our attention to the acetabulum. The soft tissue was removed from around the acetabulum. It was evident that she had a small femoral head and a small acetabulum relatively speaking. I then sequentially reamed up to a size 49, which had good bleeding bone. I did not attempt to deepen the acetabulum very much because she already seemed to be just about down to the floor. Once I was satisfied with the bleeding bony surfaces, which appeared to be relatively healthy, I then impacted in a 50 cup in the appropriate amount of anteversion and horizontal tilt. I had irrigated copiously. I then irrigated again, placed the 50 x 32 liner, impacted this in place and then directed our attention back the femur where I broached up to a size 5, which had excellent fit and fill. I decided against cement because her bone quality seemed to be appropriate and seemed to be fairly healthy. I then reduced the hip with the warehouse assistant's help and had trialed a +1 32, which seemed to be the appropriate fit. Soft tissue tension was appropriate and it had excellent stability. There was excellent flexion internal rotation, extension external rotation and there was about a millimeter of shuck in full extension. I then removed the trial components, irrigated copiously, impacted the actual size 5 [place] standard stem. Excellent fit was noted and I then placed the +1 x 32 ball, impacted this in place over a dry taper. Then, we reduced the hip again, put it through a range of motion. There was no impingement and excellent range of motion, stability was noted. I then copiously irrigated, closed the minimus layer with #1 Vicryl suture. We placed the tranexamic acid (TXA) solution in, repaired the abductor, which was very difficult to repair due to the quality of the tissue, with several interrupted stitches being placed through the bone pain to anchor it as best as possible. I then irrigated. We repaired the fascia with interrupted #1 Vicryl suture and then two running Stratafix sutures in opposite direction as the warehouse assistant closed distally and I closed proximally. Again, this layer was very indistinct and of relatively poor quality, but we were able to get a reasonable closure. I then irrigated, closed subcutaneous with #2-0 Vicryl, the skin with laxmi and the PainBuster catheter was inserted just anterior to the incision down to the neck and we primed it. It was secured to the thigh in the usual fashion. Sterile dressing was applied and she was taken to recovery room in stable condition. There were known complications. The warehouse assistant was instrumental in holding retractors and assisting in reducing and dislocating the hip and in wound closure. This procedure is coded as unusually difficult because of her significant obesity. Her body mass index (BMI) was over 32 and her soft tissues were very indistinct and difficult to work with. Much of her obesity centered around her hips and so there was a significant depth of adipose tissue that we had to work through.
--- NOTE | 2016-08-16 11:25 | REP ---
RIGHT HIP: 08/16/2016. Clinical history: Status post right hip arthroplasty. Comparison: CT 03/30/2016. Findings: Two views show skin laxmi and a surgical implanted catheter with two components of a total hip arthroplasty well-aligned in relationship to the [place] bone and each other. No abnormal soft-tissue calcification or acute fracture. There are degenerative changes at the inferior aspect of the right SI joint. Impression: 1. Status post right total hip arthroplasty with the prosthetic components well-aligned in relationship to the [place] bone and each other. Signed by Crispin Ramirez MD 08/16/2016 05:13 P
[2016-08-16] MEDS: PERCOCET 5MG/325MG TAB PO PRN (12:02)
--- NOTE | 2016-08-16 13:00 | IPN ---
DATE: 08/15/2016 The patient presents for right hip replacement. She has advanced arthritis. She understands the nature of the procedure and we talked about this today. She understands the risks of bleeding, infection, damage to nerves, vessels, persistent pain, wear, loosening, dislocation, leg length inequality, blood clots, medical problems, among others. I explained to her that there may be a role for cementing of this prosthesis depending upon her bone quality etc.. She wishes to proceed.
--- NOTE | 2016-08-16 13:19 | IPN ---
DATE: 08/16/2016 SUBJECTIVE: Patient seen and examined in the room today. Patient started having multiple episodes of vomiting. Patient also noted to have hypotension noted around 9 p.m. Patient's pain is controlled. OBJECTIVE: Vital signs: Temperature is 98.2, pulse is 90, respiration 12, blood pressure is 115/55. Blood pressure checked around 9 a.m. is 98/50. Pulse oximetry is 93% with 2 liter nasal cannula. General: Moderate stress secondary to active vomiting during encounter. Awake, oriented. HEENT: Normocephalic, atraumatic. Extraocular motor grossly intact. Cardiovascular: Regular rate. Positive S1, S2. Lungs: Clear to auscultation bilaterally Abdomen: Soft, nontender, nondistended. Bowel sounds present. Extremities: No edema. No cyanosis. LABORATORY DATA: WBC is 15.4, hemoglobin 9.6, hematocrit is 30, platelet count is 247. Sodium is 135, potassium 4.5, chloride 99, carbon dioxide 27, BUN 18, creatinine 1.59, GFR is 36.1, fasting glucose is 123, calcium is 8.3, magnesium 1.3. ASSESSMENT: 1. Right hip replacement. We will diet, pain control, anticoagulation and activity to primary orthopedic team. 2. Hypertension. Patient is currently hypotensive. Lisinopril and metoprolol succinate is on hold at this moment. 3. Nausea and vomiting. Patient has as needed Zofran. 4. Gout. On allopurinol. 5. Acute kidney injury possibly due to acute fluid loss. Encourage oral intake. 6. Hypothyroidism. On Synthroid. 7. History of Coumadin and amiodarone use. Patient is not sure why she is taking those medications. For now, we will continue her home medications . 8. History of coronary artery disease status post cardiac stent and CABG. 9. Deep venous thrombosis (DVT) prophylaxis. We defer the anticoagulation to the primary team.
[2016-08-16] MEDS: ACETAMINOPHEN TAB 650MG DOSE (2X325MG) PO PRN (14:54)
[2016-08-16] MEDS ORDERED: NS 1,000 ML IV SCH (15:30)
[2016-08-16] MEDS ORDERED: WARFARIN SOD 5 MG TAB PO ONE (17:00)
[2016-08-16] MEDS: FEXOFENADINE 60 MG TAB PO SCH (22:28)
[2016-08-17] MEDS: PERCOCET 5MG/325MG TAB PO PRN ×3 (02:40→17:58)
[2016-08-17 06:00] VITALS: BP 103/51
[2016-08-17] MEDS: LEVOTHYROXINE 0.088 MG TAB (88 MCG) PO SCH (06:41)
[2016-08-17 08:25] LABS: INR 1.81
[2016-08-17 08:27] LABS: BASO % 0.2 % (0.0-1.0); CALCIUM LEVEL 7.7 MG/DL (8.8-10.2); CREATININE FOR GFR 1.24 MG/DL (0.55-1.02); EOS # 0.1 K/mm3 (0.0-0.50); EOS % 0.9 % (0.0-3.0); GLOMERULAR FILTRATION RATE 44.7 (>39); LARGE UNSTAINED CELL # 0.2 K/mm3 (0.0-0.4); LARGE UNSTAINED CELL % 1.7 % (0.0-4.0); LYMPH # 1.9 K/mm3 (1.5-4.5); LYMPH % 17.2 % (24.0-44.0); MAGNESIUM LEVEL 1.2 MG/DL (1.8-2.4); MEAN CORPUSCULAR HEMOGLOBIN 31.5 pg (27.0-33.0); MEAN CORPUSCULAR HGB CONC 33.2 g/dl (32.0-36.5); MEAN CORPUSCULAR VOLUME 94.9 fl (80.0-96.0); MONO # 0.9 K/mm3 (0.0-0.8); MONO % 8.1 % (0.0-5.0); NEUTROPHILS # 7.9 K/mm3 (1.8-7.7); NEUTROPHILS % 71.9 % (36.0-66.0); PLATELET COUNT, AUTOMATED 171 k/mm3 (150-450); POTASSIUM SERUM 4.8 MEQ/L (3.5-5.1); RED CELL DISTRIBUTION WIDTH 13.8 % (11.5-14.5)
[2016-08-17] MEDS: MIRALAX *UNIT DOSE* 17GM PACKET PO SCH (08:32)
[2016-08-17] MEDS: OMEPRAZOLE 20 MG CAP PO SCH (08:33)
[2016-08-17] MEDS: AMIODARONE 100MG TABLET (PACERONE) PO SCH ×2 (08:33→20:52)
[2016-08-17] MEDS: OCUVITE 1 TAB PO SCH (08:33)
[2016-08-17] MEDS: MOM 30ML SUSPENSION UDC PO SCH (08:33)
[2016-08-17] MEDS: FAMOTIDINE 20 MG TAB PO SCH ×2 (08:33→20:52)
[2016-08-17] MEDS: ALLOPURINOL 300 MG TAB PO SCH (08:33)
[2016-08-17] MEDS: SENOKOT S TAB PO SCH ×2 (08:33→20:52)
[2016-08-17] MEDS: PRAVASTATIN 20 MG TAB PO SCH (08:33)
[2016-08-17] MEDS: FOLIC ACID 1 MG TAB PO SCH (08:33)
[2016-08-17] MEDS: METOPROLOL SUCC *XL* 25MG TAB (TopROL *XL*) PO SCH (08:37)
[2016-08-17] MEDS: LISINOPRIL 10 MG TAB PO SCH (08:38)
[2016-08-17] MEDS ORDERED: NS 1,000 ML IV SCH (10:45)
[2016-08-17 14:00] VITALS: BP 138/70
--- NOTE | 2016-08-17 15:45 | IPN ---
DATE: 08/17/2016 SUBJECTIVE: Patient is seen and examined in the room today. Patient stated that her nausea and vomiting has been improving. Medication has been helping her. Patient tried to increase her oral intake as much as she can tolerate it. No overnight events reported. OBJECTIVE: VITAL SIGNS: Temperature is 98.7, pulse is 94, respirations 16, blood pressure is 103/51, pulse oximetry is 95% with two liters nasal cannula. GENERAL: Morbidly obese, no sign of acute distress, alert and oriented times three. HEENT: Normocephalic, atraumatic. Extraocular motor grossly intact. Dry oral mucosa. CARDIOVASCULAR: Regular rate, positive S1, S2. LUNGS: Clear to auscultation bilaterally ABDOMEN: Soft, nontender, nondistended. Bowel sounds present. EXTREMITIES: No edema. No cyanosis. LABORATORY DATA: WBC is 11, hemoglobin 8, hematocrit 23.9, platelet count is 171. Sodium is 132, potassium 4.8, chloride is 96, carbon dioxide 27, BUN 22, creatinine 1.24, GFR is 44.7, fasting glucose 102, calcium is 7.7, magnesium 1.2. ASSESSMENT AND PLAN: 1. Right hip replacement. We will refer the diet, pain control, anticoagulation and activity level to the primary care team. 2. Acute kidney injury, secondary to acute fluid loss. We will give the patient one liter of normal saline. We will encourage increased oral intake as much as she can tolerate it. 3. Gout, on allopurinol. 4. Hypothyroidism, on Synthroid. 5. Hypomagnesemia. We will start on the magnesium supplements. 6. History of coronary artery disease status post coronary artery bypass graft (CABG) and cardiac stents. 7. Deep venous thrombosis (DVT) prophylaxis. We will defer the anticoagulation to the primary team.
[2016-08-17] MEDS ORDERED: WARFARIN SOD 2.5 MG TAB PO ONE (17:00)
[2016-08-17] MEDS: MAGNESIUM OXIDE 400 MG TAB (MAG-OX) PO SCH ×2 (17:57→20:52)
[2016-08-17] MEDS: FEXOFENADINE 60 MG TAB PO SCH (20:53)
[2016-08-17 20:55] VITALS: O2SAT 97
[2016-08-17 22:00] VITALS: BP 144/70
[2016-08-18] MEDS: PERCOCET 5MG/325MG TAB PO PRN ×3 (00:31→09:32)
[2016-08-18] MEDS: LEVOTHYROXINE 0.088 MG TAB (88 MCG) PO SCH (05:40)
[2016-08-18 06:00] VITALS: BP 130/66
[2016-08-18 07:49] LABS: BASO % 0.1 % (0.0-1.0); EOS # 0.2 K/mm3 (0.0-0.50); EOS % 1.8 % (0.0-3.0); LARGE UNSTAINED CELL # 0.2 K/mm3 (0.0-0.4); LARGE UNSTAINED CELL % 1.8 % (0.0-4.0); LYMPH # 2.3 K/mm3 (1.5-4.5); MEAN CORPUSCULAR HEMOGLOBIN 33.9 pg (27.0-33.0); MEAN CORPUSCULAR HGB CONC 35.5 g/dl (32.0-36.5); MEAN CORPUSCULAR VOLUME 95.5 fl (80.0-96.0); MONO # 1.1 K/mm3 (0.0-0.8); MONO % 9.9 % (0.0-5.0); NEUTROPHILS # 7.1 K/mm3 (1.8-7.7); NEUTROPHILS % 66.3 % (36.0-66.0); PLATELET COUNT, AUTOMATED 206 k/mm3 (150-450); RED CELL DISTRIBUTION WIDTH 14.1 % (11.5-14.5); WHITE BLOOD COUNT 10.7 K/mm3 (4.0-10.0)
[2016-08-18 07:58] LABS: ANION GAP 6 MEQ/L (8-16); BLOOD UREA NITROGEN 16 MG/DL (7-18); CALCIUM LEVEL 8.2 MG/DL (8.8-10.2); CARBON DIOXIDE LEVEL 29 MEQ/L (21-32); CHLORIDE LEVEL 99 MEQ/L (98-107); CREATININE FOR GFR 0.76 MG/DL (0.55-1.02); GLOMERULAR FILTRATION RATE > 60.0 (>39); GLUCOSE, FASTING 101 MG/DL (83-110); POTASSIUM SERUM 4.8 MEQ/L (3.5-5.1); SODIUM LEVEL 134 MEQ/L (136-145)
[2016-08-18 09:00] VITALS: O2SAT 92
[2016-08-18] MEDS: OMEPRAZOLE 20 MG CAP PO SCH (09:00)
[2016-08-18] MEDS: SENOKOT S TAB PO SCH ×2 (09:27→21:25)
[2016-08-18] MEDS: METOPROLOL SUCC *XL* 25MG TAB (TopROL *XL*) PO SCH (09:28)
[2016-08-18] MEDS: AMIODARONE 100MG TABLET (PACERONE) PO SCH ×2 (09:28→21:25)
[2016-08-18] MEDS: OCUVITE 1 TAB PO SCH (09:28)
[2016-08-18] MEDS: FAMOTIDINE 20 MG TAB PO SCH ×2 (09:29→21:25)
[2016-08-18] MEDS: MAGNESIUM OXIDE 400 MG TAB (MAG-OX) PO SCH ×3 (09:29→21:26)
[2016-08-18] MEDS: MIRALAX *UNIT DOSE* 17GM PACKET PO SCH (09:30)
[2016-08-18] MEDS: LISINOPRIL 10 MG TAB PO SCH (09:30)
[2016-08-18] MEDS: PRAVASTATIN 20 MG TAB PO SCH (09:30)
[2016-08-18] MEDS: ALLOPURINOL 300 MG TAB PO SCH (09:30)
[2016-08-18] MEDS: MOM 30ML SUSPENSION UDC PO SCH (09:30)
[2016-08-18] MEDS: FOLIC ACID 1 MG TAB PO SCH (09:30)
[2016-08-18] MEDS: ONDANSETRON 4 MG TAB (S0181) PO PRN (11:19)
[2016-08-18 14:00] VITALS: BP 133/62
[2016-08-18] MEDS ORDERED: WARFARIN SOD 2.5 MG TAB PO ONE (17:00)
--- NOTE | 2016-08-18 17:21 | IPN ---
DATE: 08/18/2016 SUBJECTIVE: The patient is seen and examined in the room today. The patient is still complaining of intermittent nausea and vomiting. However, the patient stated she tolerated oral diet well. No overnight events were reported. OBJECTIVE: VITAL SIGNS: Temperature is 97.2, pulse 76, respirations 18, blood pressure 130/66, pulse oximetry is 96% with two liters nasal cannula. GENERAL: No sign of acute distress. Alert and oriented times three. HEENT: Normocephalic, atraumatic. Extraocular motor grossly intact. CARDIOVASCULAR: Positive S1, S2, regular rate. LUNGS: Clear to auscultation bilaterally. ABDOMEN: Soft, nontender, nondistended. Bowel sounds present. No rebound, no guarding. EXTREMITIES: No edema, no sign of cyanosis. LABORATORY DATA: WBC is 10.7, hemoglobin 8.4, hematocrit 23.5, platelet count is 206. Sodium is 134, potassium 4.8, chloride 99. Carbon dioxide 29, BUN 16, creatinine 0.76, GFR greater than 60, fasting glucose 101, calcium 8.2, magnesium 2. PT is 22.8, INR is 2. ASSESSMENT AND PLAN: 1. Right hip replacement. Refer diet, pain control, anticoagulation and activity level to the primary orthopedic team. 2. Acute kidney injury, secondary to acute fluid loss. The patient will continue taking Zofran to control the intermittent nausea and vomiting. The patient had two liters intravenous (IV) fluid in the past two days. Currently renal function has returned to the normal range. Continue to monitor. 3. Gout, on allopurinol. 4. Hypothyroidism, on Synthroid. 5. Hypomagnesemia. The patient is on magnesium supplements. 6. History of coronary artery disease status post coronary artery bypass graft (CABG) and cardiac stents. 7. Deep venous thrombosis (DVT) prophylaxis. We will defer the anticoagulation to the primary team.
[2016-08-18] MEDS: traMADol 50 MG TAB PO PRN (21:25)
[2016-08-18] MEDS: FEXOFENADINE 60 MG TAB PO SCH (21:26)
[2016-08-18 22:00] VITALS: BP 176/82
[2016-08-19] MEDS: LEVOTHYROXINE 0.088 MG TAB (88 MCG) PO SCH (05:28)
[2016-08-19] MEDS: traMADol 50 MG TAB PO PRN ×2 (05:29→16:52)
[2016-08-19 06:00] VITALS: BP 169/80
[2016-08-19 07:15] LABS: BASO % 0.2 % (0.0-1.0); EOS # 0.2 K/mm3 (0.0-0.50); EOS % 1.8 % (0.0-3.0); LARGE UNSTAINED CELL # 0.2 K/mm3 (0.0-0.4); LARGE UNSTAINED CELL % 2.2 % (0.0-4.0); LYMPH # 2.3 K/mm3 (1.5-4.5); LYMPH % 22.1 % (24.0-44.0); MEAN CORPUSCULAR HEMOGLOBIN 31.6 pg (27.0-33.0); MEAN CORPUSCULAR HGB CONC 33.3 g/dl (32.0-36.5); MEAN CORPUSCULAR VOLUME 94.9 fl (80.0-96.0); MONO # 0.7 K/mm3 (0.0-0.8); MONO % 6.6 % (0.0-5.0); NEUTROPHILS # 7.1 K/mm3 (1.8-7.7); NEUTROPHILS % 67.2 % (36.0-66.0); PLATELET COUNT, AUTOMATED 232 k/mm3 (150-450); RED CELL DISTRIBUTION WIDTH 13.7 % (11.5-14.5); WHITE BLOOD COUNT 10.6 K/mm3 (4.0-10.0)
[2016-08-19 07:19] LABS: INR 1.84
[2016-08-19 07:39] LABS: ANION GAP 7 MEQ/L (8-16); BLOOD UREA NITROGEN 13 MG/DL (7-18); CALCIUM LEVEL 8.5 MG/DL (8.8-10.2); CARBON DIOXIDE LEVEL 28 MEQ/L (21-32); CHLORIDE LEVEL 97 MEQ/L (98-107); CREATININE FOR GFR 0.58 MG/DL (0.55-1.02); GLOMERULAR FILTRATION RATE > 60.0 (>39); GLUCOSE, FASTING 98 MG/DL (83-110); POTASSIUM SERUM 4.7 MEQ/L (3.5-5.1); SODIUM LEVEL 132 MEQ/L (136-145)
[2016-08-19] MEDS: MAGNESIUM OXIDE 400 MG TAB (MAG-OX) PO SCH ×3 (09:37→20:18)
[2016-08-19] MEDS: PRAVASTATIN 20 MG TAB PO SCH (09:37)
[2016-08-19] MEDS: MIRALAX *UNIT DOSE* 17GM PACKET PO SCH (09:37)
[2016-08-19] MEDS: MOM 30ML SUSPENSION UDC PO SCH (09:37)
[2016-08-19] MEDS: METOPROLOL SUCC *XL* 25MG TAB (TopROL *XL*) PO SCH (09:39)
[2016-08-19] MEDS: FOLIC ACID 1 MG TAB PO SCH (09:40)
[2016-08-19] MEDS: FAMOTIDINE 20 MG TAB PO SCH ×2 (09:40→20:18)
[2016-08-19] MEDS: SENOKOT S TAB PO SCH ×2 (09:40→19:32)
[2016-08-19] MEDS: OCUVITE 1 TAB PO SCH (09:40)
[2016-08-19] MEDS: AMIODARONE 100MG TABLET (PACERONE) PO SCH ×2 (09:40→20:18)
[2016-08-19] MEDS: ALLOPURINOL 300 MG TAB PO SCH (09:40)
[2016-08-19] MEDS: OMEPRAZOLE 20 MG CAP PO SCH (09:40)
[2016-08-19] MEDS: LISINOPRIL 10 MG TAB PO SCH (09:41)
[2016-08-19 14:00] VITALS: BP 136/76
[2016-08-19] MEDS ORDERED: WARFARIN SOD 2.5 MG TAB PO ONE (17:00)
[2016-08-19] MEDS: FEXOFENADINE 60 MG TAB PO SCH (20:18)
[2016-08-19 22:00] VITALS: BP 140/76
[2016-08-20] MEDS: traMADol 50 MG TAB PO PRN ×2 (01:54→17:40)
[2016-08-20 04:00] VITALS: BP 157/70
[2016-08-20] MEDS: LEVOTHYROXINE 0.088 MG TAB (88 MCG) PO SCH (06:01)
[2016-08-20 07:03] LABS: INR 1.84
[2016-08-20] MEDS: SENOKOT S TAB PO SCH ×2 (09:00→20:42)
[2016-08-20] MEDS: MIRALAX *UNIT DOSE* 17GM PACKET PO SCH (09:00)
[2016-08-20] MEDS: MOM 30ML SUSPENSION UDC PO SCH (09:00)
[2016-08-20] MEDS: FAMOTIDINE 20 MG TAB PO SCH ×2 (09:58→20:40)
[2016-08-20] MEDS: PRAVASTATIN 20 MG TAB PO SCH (09:58)
[2016-08-20] MEDS: AMIODARONE 100MG TABLET (PACERONE) PO SCH ×2 (09:58→20:41)
[2016-08-20] MEDS: OMEPRAZOLE 20 MG CAP PO SCH (09:58)
[2016-08-20] MEDS: ALLOPURINOL 300 MG TAB PO SCH (09:58)
[2016-08-20] MEDS: OCUVITE 1 TAB PO SCH (09:58)
[2016-08-20] MEDS: LISINOPRIL 10 MG TAB PO SCH (09:59)
[2016-08-20] MEDS: FOLIC ACID 1 MG TAB PO SCH (09:59)
[2016-08-20] MEDS: MAGNESIUM OXIDE 400 MG TAB (MAG-OX) PO SCH ×3 (09:59→20:40)
[2016-08-20] MEDS: METOPROLOL SUCC *XL* 25MG TAB (TopROL *XL*) PO SCH (09:59)
[2016-08-20 14:00] VITALS: BP 141/67
[2016-08-20] MEDS ORDERED: WARFARIN SOD 3 MG TAB PO ONE (17:00)
[2016-08-20] MEDS: FEXOFENADINE 60 MG TAB PO SCH (20:41)
[2016-08-20 22:00] VITALS: BP 157/80
[2016-08-21] MEDS: traMADol 50 MG TAB PO PRN ×3 (00:34→18:19)
[2016-08-21] MEDS: ACETAMINOPHEN TAB 650MG DOSE (2X325MG) PO PRN (05:20)
[2016-08-21 06:00] VITALS: BP 168/78
[2016-08-21] MEDS: LEVOTHYROXINE 0.088 MG TAB (88 MCG) PO SCH (06:11)
[2016-08-21 07:15] LABS: INR 1.95
[2016-08-21] MEDS: PRAVASTATIN 20 MG TAB PO SCH (08:58)
[2016-08-21] MEDS: MAGNESIUM OXIDE 400 MG TAB (MAG-OX) PO SCH ×3 (08:58→19:39)
[2016-08-21] MEDS: AMIODARONE 100MG TABLET (PACERONE) PO SCH ×2 (08:58→19:38)
[2016-08-21] MEDS: LISINOPRIL 10 MG TAB PO SCH (08:58)
[2016-08-21] MEDS: OCUVITE 1 TAB PO SCH (08:58)
[2016-08-21] MEDS: OMEPRAZOLE 20 MG CAP PO SCH (08:59)
[2016-08-21] MEDS: ALLOPURINOL 300 MG TAB PO SCH (08:59)
[2016-08-21] MEDS: METOPROLOL SUCC *XL* 25MG TAB (TopROL *XL*) PO SCH (08:59)
[2016-08-21] MEDS: MIRALAX *UNIT DOSE* 17GM PACKET PO SCH (08:59)
[2016-08-21] MEDS: FOLIC ACID 1 MG TAB PO SCH (08:59)
[2016-08-21] MEDS: MOM 30ML SUSPENSION UDC PO SCH (08:59)
[2016-08-21] MEDS: SENOKOT S TAB PO SCH ×2 (08:59→19:30)
[2016-08-21] MEDS: FAMOTIDINE 20 MG TAB PO SCH ×2 (08:59→19:39)
[2016-08-21 14:00] VITALS: BP 150/70
[2016-08-21] MEDS ORDERED: WARFARIN SOD 2.5 MG TAB PO ONE (17:00)
[2016-08-21] MEDS: FEXOFENADINE 60 MG TAB PO SCH (19:38)
[2016-08-22] MEDS: traMADol 50 MG TAB PO PRN ×3 (01:12→18:08)
[2016-08-22] MEDS: LEVOTHYROXINE 0.088 MG TAB (88 MCG) PO SCH (05:28)
[2016-08-22 06:00] VITALS: BP 138/78
[2016-08-22 07:02] LABS: INR 1.97
[2016-08-22] MEDS ORDERED: TRAM50TA2 PO (07:28)
[2016-08-22] MEDS: MOM 30ML SUSPENSION UDC PO SCH (09:00)
[2016-08-22] MEDS: MIRALAX *UNIT DOSE* 17GM PACKET PO SCH (09:00)
[2016-08-22] MEDS: AMIODARONE 100MG TABLET (PACERONE) PO SCH ×2 (09:35→21:38)
[2016-08-22] MEDS: ALLOPURINOL 300 MG TAB PO SCH (09:35)
[2016-08-22] MEDS: MAGNESIUM OXIDE 400 MG TAB (MAG-OX) PO SCH ×3 (09:36→21:37)
[2016-08-22] MEDS: FAMOTIDINE 20 MG TAB PO SCH ×2 (09:36→21:37)
[2016-08-22] MEDS: OCUVITE 1 TAB PO SCH (09:36)
[2016-08-22] MEDS: OMEPRAZOLE 20 MG CAP PO SCH (09:36)
[2016-08-22] MEDS: METOPROLOL SUCC *XL* 25MG TAB (TopROL *XL*) PO SCH (09:36)
[2016-08-22] MEDS: SENOKOT S TAB PO SCH ×2 (09:36→21:37)
[2016-08-22] MEDS: PRAVASTATIN 20 MG TAB PO SCH (09:37)
[2016-08-22] MEDS: LISINOPRIL 10 MG TAB PO SCH (09:37)
[2016-08-22] MEDS: FOLIC ACID 1 MG TAB PO SCH (09:38)
[2016-08-22 14:00] VITALS: BP 143/68
[2016-08-22] MEDS ORDERED: WARFARIN SOD 2.5 MG TAB PO ONE (17:00)
[2016-08-22] MEDS: FEXOFENADINE 60 MG TAB PO SCH (21:37)
[2016-08-22 22:00] VITALS: BP 142/78
[2016-08-23] MEDS: traMADol 50 MG TAB PO PRN ×3 (03:12→18:15)
[2016-08-23 06:00] VITALS: BP 155/74
[2016-08-23] MEDS: LEVOTHYROXINE 0.088 MG TAB (88 MCG) PO SCH (06:28)
[2016-08-23 08:15] LABS: BASO % 0.5 % (0.0-1.0); EOS # 0.3 K/mm3 (0.0-0.50); EOS % 2.9 % (0.0-3.0); LARGE UNSTAINED CELL # 0.2 K/mm3 (0.0-0.4); LARGE UNSTAINED CELL % 2.3 % (0.0-4.0); LYMPH # 2.9 K/mm3 (1.5-4.5); LYMPH % 25.9 % (24.0-44.0); MEAN CORPUSCULAR HEMOGLOBIN 33.1 pg (27.0-33.0); MEAN CORPUSCULAR HGB CONC 34.8 g/dl (32.0-36.5); MONO # 0.9 K/mm3 (0.0-0.8); MONO % 8.9 % (0.0-5.0); NEUTROPHILS # 6.1 K/mm3 (1.8-7.7); NEUTROPHILS % 59.5 % (36.0-66.0); PLATELET COUNT, AUTOMATED 365 k/mm3 (150-450); RED CELL DISTRIBUTION WIDTH 14.7 % (11.5-14.5); WHITE BLOOD COUNT 10.3 K/mm3 (4.0-10.0)
[2016-08-23 08:29] LABS: ANION GAP 7 MEQ/L (8-16); BLOOD UREA NITROGEN 10 MG/DL (7-18); CARBON DIOXIDE LEVEL 32 MEQ/L (21-32); CHLORIDE LEVEL 92 MEQ/L (98-107); CREATININE FOR GFR 0.61 MG/DL (0.55-1.02); GLOMERULAR FILTRATION RATE > 60.0 (>39); GLUCOSE, FASTING 104 MG/DL (83-110); POTASSIUM SERUM 4.4 MEQ/L (3.5-5.1); SODIUM LEVEL 131 MEQ/L (136-145)
[2016-08-23] MEDS: SENOKOT S TAB PO SCH ×2 (09:00→20:56)
[2016-08-23] MEDS: MIRALAX *UNIT DOSE* 17GM PACKET PO SCH (09:00)
[2016-08-23] MEDS: MOM 30ML SUSPENSION UDC PO SCH (09:00)
[2016-08-23] MEDS: METOPROLOL SUCC *XL* 25MG TAB (TopROL *XL*) PO SCH (09:09)
[2016-08-23] MEDS: ALLOPURINOL 300 MG TAB PO SCH (09:10)
[2016-08-23] MEDS: OCUVITE 1 TAB PO SCH (09:10)
[2016-08-23] MEDS: AMIODARONE 100MG TABLET (PACERONE) PO SCH ×2 (09:10→20:56)
[2016-08-23] MEDS: OMEPRAZOLE 20 MG CAP PO SCH (09:10)
[2016-08-23] MEDS: PRAVASTATIN 20 MG TAB PO SCH (09:10)
[2016-08-23] MEDS: FOLIC ACID 1 MG TAB PO SCH (09:10)
[2016-08-23] MEDS: LISINOPRIL 10 MG TAB PO SCH (09:10)
[2016-08-23] MEDS: MAGNESIUM OXIDE 400 MG TAB (MAG-OX) PO SCH ×3 (09:11→20:56)
[2016-08-23] MEDS: FAMOTIDINE 20 MG TAB PO SCH ×2 (09:11→20:57)
[2016-08-23 14:00] VITALS: BP 131/72
--- NOTE | 2016-08-23 15:27 | IPN ---
DATE: 08/23/2016 Patient is seen and examined at the bedside. Chart has been reviewed. Patient complains of right hip pain at the surgical site, better with pain medications. Denies any paresthesias or weakness. No nausea, vomiting, diarrhea, or abdominal pain. Tolerating her diet well. No chest pain, pressure or tightness, headache, fever, or chills. Afebrile overnight. Temperature 98, pulse 70, respiratory rate 20, blood pressure 155/74, 94% on room air. LUNGS: Clear to auscultation. No wheezing, rales, or rhonchi. HEART: S1, S2, sinus rhythm. ABDOMEN: Soft, nontender, nondistended. Positive bowel sounds. EXTREMITIES: No pitting edema. Right postsurgical hip: Warm, dry, well-perfused, pink in color, surgical changes. No drainage. LABORATORY DATA: 08/23/2016 CBC, metabolic panel, and INR have been reviewed. IMPRESSION: 1. A 75-year-old with right hip replacement. Deep vein thrombosis (DVT) prophylaxis with Coumadin. Managed by orthopedic surgery. Awaiting placement. Currently alternate level of care (ALC) status. Continue with pain medications, physical therapy (PT), DVT prophylaxis. 2. Acute kidney injury, secondary to acute fluid loss, on Zofran for intermittent vomiting. No IV fluids. Back to baseline. 3. Hyponatremia, stable. No acute mental status change. 4. Anemia. No acute indication for red blood cell transfusion. Most likely chronic. 5. History of coronary artery disease (CAD) and coronary artery bypass graft (CABG), stable. No acute ischemic symptoms. 6. Hypothyroidism, on Synthroid. 7. Low magnesium, supplemented. MTDD
[2016-08-23] MEDS ORDERED: WARFARIN SOD 2.5 MG TAB PO ONE (17:00)
[2016-08-23] MEDS: FEXOFENADINE 60 MG TAB PO SCH (20:57)
[2016-08-23 22:00] VITALS: BP 155/75
[2016-08-24] MEDS: traMADol 50 MG TAB PO PRN ×2 (02:23→10:36)
[2016-08-24 06:00] VITALS: BP 154/70
[2016-08-24] MEDS: LEVOTHYROXINE 0.088 MG TAB (88 MCG) PO SCH (06:20)
[2016-08-24 08:01] LABS: INR 2.07
[2016-08-24] MEDS: MIRALAX *UNIT DOSE* 17GM PACKET PO SCH (09:00)
[2016-08-24] MEDS: SENOKOT S TAB PO SCH (09:00)
[2016-08-24] MEDS: MOM 30ML SUSPENSION UDC PO SCH (09:00)
[2016-08-24] MEDS: MAGNESIUM OXIDE 400 MG TAB (MAG-OX) PO SCH (09:29)
[2016-08-24] MEDS: LISINOPRIL 10 MG TAB PO SCH (09:29)
[2016-08-24] MEDS: FAMOTIDINE 20 MG TAB PO SCH (09:29)
[2016-08-24] MEDS: OMEPRAZOLE 20 MG CAP PO SCH (09:29)
[2016-08-24 09:30] VITALS: BP 154/70
[2016-08-24] MEDS: OCUVITE 1 TAB PO SCH (09:30)
[2016-08-24] MEDS: FOLIC ACID 1 MG TAB PO SCH (09:30)
[2016-08-24] MEDS: ALLOPURINOL 300 MG TAB PO SCH (09:30)
[2016-08-24] MEDS: PRAVASTATIN 20 MG TAB PO SCH (09:30)
[2016-08-24] MEDS: METOPROLOL SUCC *XL* 25MG TAB (TopROL *XL*) PO SCH (09:30)
[2016-08-24] MEDS: AMIODARONE 100MG TABLET (PACERONE) PO SCH (09:30)
[2016-08-24] MEDS: ONDANSETRON 4 MG TAB (S0181) PO PRN (10:36)
--- NOTE | 2016-08-24 15:45 | DSES ---
DATE OF ADMISSION: 08/15/2016 DATE OF DISCHARGE: 08/24/2016 Patient was discharged to [facility]. Weightbearing as tolerated on the right leg with walker. Followup with Dr. Lerma on 08/30/2016 at 10:15 a.m. Coumadin to be taken 2.5 mg today with daily INR through September 15. Target INR of 2. Followup with medical physician at [facility]. CONSULTANTS: Dr. Michael Lerma, orthopedic surgery. PROCEDURES DURING THIS ADMISSION: Right total hip arthroplasty using a Wirt size 5 with a +1 32 head and a 50 cup Ultrex liner. PRIMARY DISCHARGE DIAGNOSES: 1. Right hip osteoarthritis and rheumatoid arthritis with right hip replacement. 2. Acute kidney injury secondary to acute fluid loss. 3. Gout. 4. Hypothyroidism. 5. Hypomagnesemia. 6. History of coronary artery disease and coronary artery bypass graft. 7. Cardiac stents. DISCHARGE MEDICATIONS: - Coumadin 2.5 mg by mouth today - allopurinol 300 mg daily - amiodarone 100 mg twice a day - vitamin D 1000 units daily - Anu 180 mg daily - folic acid 1 mg daily - Humira Pen 40 mg subcutaneous every 2 weeks - levothyroxine 88 mcg daily - lisinopril 10 daily - meclizine 12.5 daily - methotrexate 15 mg by mouth weekly - metoprolol 25 daily - multivitamin one tablet daily - omeprazole 40 daily - pravastatin 40 daily - ranitidine one tablet twice a day - Senokot one capsule as needed for constipation HOSPITAL COURSE: This is a 75-year-old female with history of rheumatoid arthritis, severe osteoarthritis, underwent right total hip arthroplasty with Dr. Michael Lerma, orthopedic surgery. Hospitalist was consulted on August 15 for medical management of chronic issues. Patient has history of pacemaker placement, coronary artery bypass graft (CABG), cardiac stents, coronary artery disease (CAD), myocardial infarction ([place]), gout, hypothyroidism. Patient had no acute ischemic symptoms. Denied any chest pain, pressure, or tightness. She was continued on her home beta blockade and statin. Her methotrexate and Humira every other week were not given, as the doses were unclear initially. For her current use of amiodarone patient could not remember if she had underlying atrial fibrillation. She was continued on her home dose of amiodarone. No issues of atrial fibrillation during the admission. Patient underwent surgical intervention on 08/15/2016 with right total hip arthroplasty due to severe rheumatoid arthritis and right hip osteoarthritis with no significant postoperative complications. Patient was transferred to hospitalist service due to chronic comorbid conditions. Anticoagulation was done by orthopedic surgery. Patient did not pass a home safety evaluation and was changed to alternative level of care (ALC) status on 08/18/2016, awaiting placement. She had intermittent nausea and vomiting and had acute fluid loss with acute kidney injury, which responded to intravenous (IV) fluids. Creatinine peaked at 1.49, improved to 0.61 with intravenous fluids. She had chronic hyponatremia, sodium level of 131-135 with no acute mental status changes. She had persistent leukocytosis, white count of 10.3 with no infectious etiology. She remained afebrile throughout the entire admission. Pathology of the bone 08/16/2016 shows chronic synovitis, degenerative joint disease of the right hip status post total hip arthroplasty. Patient was kept on ALC status with no acute issues from August 18 to August 23. She complains of pain intermittently as she ambulates, which is well controlled with the current dose of tramadol. Patient was given anticoagulation with Coumadin. Was therapeutic at 2.07 on the day of discharge. LABORATORIES ON DISCHARGE: INR of 2.07. White count 10.3, hemoglobin 8.6, hematocrit 24.7, platelet count 265. Sodium 131, potassium 4.4, chloride 92, bicarbonate 32, BUN 10, creatinine 0.61, glucose of 104. IMAGING STUDY: Hip x-ray 08/16/2016 status post right total hip arthroplasty with prosthetic components well aligned in relationship to [place] bone and each other. TIME SPENT ON DISCHARGE: 30 minutes.
[2016-08-24] MEDS ORDERED: WARFARIN SOD 2.5 MG TAB PO ONE (17:00)
--- NOTE | 2016-08-26 17:00 | DSES ---
DATE OF ADMISSION: 08/15/2016 DATE OF DISCHARGE: 08/24/2016 ADMISSION DIAGNOSIS: Symptomatic osteoarthritis of the right hip. OTHER DIAGNOSES: 1. Hypertension. 2. Coronary artery disease. 3. History of acute myocardial infarction ([place]), status post cardiac stents/coronary artery bypass graft (CABG). 4. Hyperlipidemia. 5. Rheumatoid arthritis. 6. Gout. 7. Hypothyroid. DISCHARGE DIAGNOSIS: Osteoarthritis of the right hip, status post right total hip arthroplasty. OPERATION PERFORMED: Right total hip arthroplasty. HISTORY OF PRESENT ILLNESS: The patient is a 75-year-old female with continuing right hip pain and stiffness. She did not respond to conservative treatment. She has consented for an elective total hip arthroplasty on the right by Dr. Lerma. HOSPITAL COURSE: The patient underwent a right total hip arthroplasty under spinal anesthesia. Surgery was uneventful. The patient did develop nausea, vomiting, hypotension, and acute kidney injury suspected to fluid loss while she was inpatient. On the day of discharge, she was asymptomatic and stable. She was up with physical therapy and weightbearing as tolerated on the right lower extremity. She was discharged on oral pain medications. She will resume her preoperative medications and diet. She will use the thromboembolic deterrent stockings and Coumadin to prevent deep venous thrombosis. She will followup in our office in 12-14 days for wound check and staple removal. She is encouraged to contact our office sooner if there is any increased pain, drainage, bleeding, redness, numbness or tingling in the leg, fever greater than 101 degrees or any other concerns. Please see the medical record for additional details.
== END 2016-08-24 11:15 | DRG 470 ==
LOC: M OR 12:26 → M MS5PR 18:00
PROVIDERS: ADMIT Orthopaedic Surgery; ATTEND General Practice
PROC: 0SR90JA Replacement of Right Hip Joint with Synthetic Substitute, Uncemented, Open Approach (ICD-10-PCS; principal; 2016-08-15 15:15)
DX: M16.11 Unilateral primary osteoarthritis, right hip (principal); N17.9 Acute kidney failure, unspecified; E87.1 Hypo-osmolality and hyponatremia; I10 Essential (primary) hypertension; I25.10 Atherosclerotic heart disease of native coronary artery without angina pectoris; I25.2 Old myocardial infarction; M05.9 Rheumatoid arthritis with rheumatoid factor, unspecified; M10.9 Gout, unspecified; E66.9 Obesity, unspecified; E03.9 Hypothyroidism, unspecified; D64.9 Anemia, unspecified; Z95.5 Presence of coronary angioplasty implant and graft; R11.2 Nausea with vomiting, unspecified; E83.42 Hypomagnesemia; Z96.653 Presence of artificial knee joint, bilateral; Z88.6 Allergy status to analgesic agent; Z88.5 Allergy status to narcotic agent; Z88.0 Allergy status to penicillin; Z88.2 Allergy status to sulfonamides; Z88.1 Allergy status to other antibiotic agents; Z91.018 Allergy to other foods; Z79.899 Other long term (current) drug therapy; Z68.32 Body mass index [BMI] 32.0-32.9, adult

== ENCOUNTER → 2016-10-13 | Outpatient (REF) | payer OTHER, MEDICAID ==
[~2016-10-13] MED LIST changes: +COUM1TAB17 PO
[2016-10-13 18:36] LABS: ALBUMIN 3.5 GM/DL (3.2-5.2); ALT/SGPT 13 U/L (12-78); CREATININE FOR GFR 0.66 MG/DL (0.55-1.02); GLOMERULAR FILTRATION RATE > 60.0 (>39)
[2016-10-13 19:16] LABS: BASO % 0.4 % (0.0-1.0); EOS # 0.3 K/mm3 (0.0-0.50); EOS % 2.8 % (0.0-3.0); LARGE UNSTAINED CELL # 0.3 K/mm3 (0.0-0.4); LARGE UNSTAINED CELL % 2.8 % (0.0-4.0); LYMPH # 3.6 K/mm3 (1.5-4.5); LYMPH % 37.6 % (24.0-44.0); MEAN CORPUSCULAR HGB CONC 32.4 g/dl (32.0-36.5); MEAN CORPUSCULAR VOLUME 98.6 fl (80.0-96.0); MONO # 0.6 K/mm3 (0.0-0.8); MONO % 6.5 % (0.0-5.0); NEUTROPHILS # 4.8 K/mm3 (1.8-7.7); PLATELET COUNT, AUTOMATED 287 k/mm3 (150-450); RED CELL DISTRIBUTION WIDTH 14.1 % (11.5-14.5); WHITE BLOOD COUNT 9.5 K/mm3 (4.0-10.0)
== END ==
LOC: M LABDRAW1 14:51
PROVIDERS: ATTEND Internal Medicine Rheumatology
DX: Z79.899 Other long term (current) drug therapy (principal); M05.19 Rheumatoid lung disease with rheumatoid arthritis of multiple sites

== ENCOUNTER → 2017-03-14 | Outpatient (CLI) | payer OTHER, MEDICAID ==
[~2017-03-14] MED LIST changes: +CONRAY-43 43% 50ML VIAL (Q9960) As Ordered ONE; -FOLI1TAB2 PO; +FOLI1TAB4 PO; +LIDOCAINE 1% MDV 20ML VIAL As Ordered ONE; +METO1TAB32 PO; -METO25TA74 PO; +VOLT1GEL15 TD; -VOLT1GEL24 TD; +methylPREDNISolone SUSP 40 MG/ML (DEPO-medrol) VIAL (J1030) As Ordered ONE
--- NOTE | 2017-03-14 15:22 | REP ---
RIGHT SHOULDER ARTHROGRAM: The procedure was performed by WAQAR Kamara under the direct supervision of Dr. Henry. The procedure along with its risks, benefits, and complications were discussed with the patient prior to the examination. Informed consent was obtained both verbally and written. The right humeral head was localized using fluoroscopic guidance. The skin was marked, prepped and draped in the usual sterile fashion. A procedural time-out was performed to ensure that the correct patient, site, and procedure were being performed. Local infiltrative anesthesia was achieved using 1% lidocaine. Under fluoroscopic guidance a 22 gauge spinal needle was inserted and advanced to the humeral head. 0.5 mL of Conray 43 was injected to verify placement. 5 mL of a solution containing 3 mL of 1% lidocaine and 2 mL of Depo Medrol 40 was injected into the joint space. The needle was removed. The patient tolerated the procedure well and had no immediate complications. Fluoroscopy time of 5 seconds were utilized for this procedure. Reviewed by WAQAR Mccarty 03/15/2017 10:18 AEdited and Signed by Adolfo Henry MD 03/15/2017 02:09 P
== END ==
LOC: M RADPRO 11:28
PROVIDERS: ATTEND Physician Assistant
DX: M19.011 Primary osteoarthritis, right shoulder (principal)
CPT/HCPCS: 20610; 77002; J1030; Q9960

== ENCOUNTER → 2017-06-01 | Outpatient (CLI) | payer OTHER, MEDICAID | LOC: M RAD 15:00 | DX: M25.521 Pain in right elbow (principal); M19.021 Primary osteoarthritis, right elbow | CPT/HCPCS: 73200 ==

== ENCOUNTER → 2018-05-24 | Outpatient (REF) | payer OTHER ==
[~2018-05-24] MED LIST changes: -CONRAY-43 43% 50ML VIAL (Q9960) As Ordered ONE; +FOLI1TAB11 PO; -FOLI1TAB4 PO; -LIDOCAINE 1% MDV 20ML VIAL As Ordered ONE; +METH2.5T48 PO; -METH2.5TA PO; -ZYLO300T4 PO; +ZYLO300T6 PO; -methylPREDNISolone SUSP 40 MG/ML (DEPO-medrol) VIAL (J1030) As Ordered ONE
[2018-05-24 12:13] LABS: BASO % 0.4 % (0.0-1.0); EOS # 0.3 10^3/uL (0.0-0.50); EOS % 2.4 % (0.0-3.0); HEMATOCRIT 36.2 % (36.0-47.0); HEMOGLOBIN 12.2 g/dl (12.0-15.5); LYMPH # 3.9 10^3/uL (1.5-4.5); LYMPH % 34.7 % (24.0-44.0); MEAN CORPUSCULAR HEMOGLOBIN 30.7 pg (27.0-33.0); MEAN CORPUSCULAR HGB CONC 33.7 g/dl (32.0-36.5); MONO # 1.1 10^3/uL (0.0-0.8); MONO % 9.6 % (0.0-5.0); NEUTROPHILS # 5.9 10^3/uL (1.8-7.7); NEUTROPHILS % 52.3 % (36.0-66.0); PLATELET COUNT, AUTOMATED 229 10^3/uL (150-450); RED BLOOD COUNT 3.98 10^6/uL (4.00-5.40); WHITE BLOOD COUNT 11.3 10^3/uL (4.0-10.0)
[2018-05-24 12:40] LABS: ALBUMIN 3.5 GM/DL (3.2-5.2); ALT/SGPT 15 U/L (12-78); BILIRUBIN,TOTAL 0.5 MG/DL (0.2-1.0); BLOOD UREA NITROGEN 10 MG/DL (7-18); C REACTIVE PROTEIN QUANTITATIV < 0.30 MG/DL (0.00-0.30); CALCIUM LEVEL 8.3 MG/DL (8.8-10.2); CARBON DIOXIDE LEVEL 29 MEQ/L (21-32); CHLORIDE LEVEL 95 MEQ/L (98-107); CREATININE FOR GFR 0.72 MG/DL (0.55-1.30); GLOMERULAR FILTRATION RATE > 60.0 (>39); GLUCOSE, FASTING 91 MG/DL (70-100); POTASSIUM SERUM 4.1 MEQ/L (3.5-5.1); SODIUM LEVEL 131 MEQ/L (136-145); TOTAL PROTEIN 7.1 GM/DL (6.4-8.2)
[2018-05-24 12:52] LABS: ERYTHROCYTE SEDIMENTATION RATE 20 mm/hr (0-30)
[2018-05-25 09:40] LABS: HEPATITIS B SURFACE ANTIBODY POSITIVE (POSITIVE)
[2018-05-25 09:50] LABS: HEPATITIS B SURFACE ANTIGEN NEGATIVE (NEGATIVE)
[2018-05-25 10:18] LABS: HEPATITIS C VIRUS ABY INDEX 0.1 INDEX (<0.8)
== END ==
LOC: M SFHCPLAZ 10:27
PROVIDERS: ATTEND Internal Medicine Rheumatology
DX: M06.9 Rheumatoid arthritis, unspecified (principal)
CPT/HCPCS: 36415; 80053; 85025; 85652; 86140; 86480; 86704; 86706; 86803; 87340; G0463

== ENCOUNTER → 2018-09-26 | Outpatient (REF) | payer OTHER ==
[2018-09-26 13:30] LABS: BASO % 0.4 % (0.0-1.0); EOS # 0.2 10^3/uL (0.0-0.50); EOS % 2.5 % (0.0-3.0); HEMATOCRIT 29.5 % (36.0-47.0); HEMOGLOBIN 9.6 g/dl (12.0-15.5); LYMPH # 1.9 10^3/uL (1.5-4.5); LYMPH % 25.2 % (24.0-44.0); MEAN CORPUSCULAR HEMOGLOBIN 31.8 pg (27.0-33.0); MEAN CORPUSCULAR HGB CONC 32.5 g/dl (32.0-36.5); MEAN CORPUSCULAR VOLUME 97.7 fl (80.0-96.0); MONO # 0.7 10^3/uL (0.0-0.8); MONO % 9.5 % (0.0-5.0); NEUTROPHILS # 4.6 10^3/uL (1.8-7.7); NEUTROPHILS % 61.9 % (36.0-66.0); PLATELET COUNT, AUTOMATED 195 10^3/uL (150-450); RED BLOOD COUNT 3.02 10^6/uL (4.00-5.40); WHITE BLOOD COUNT 7.5 10^3/uL (4.0-10.0)
[2018-09-26 15:06] LABS: ALBUMIN 3.4 GM/DL (3.2-5.2); BILIRUBIN,TOTAL 0.5 MG/DL (0.2-1.0); C REACTIVE PROTEIN QUANTITATIV 0.32 MG/DL (0.00-0.30); CALCIUM LEVEL 8.2 MG/DL (8.8-10.2); GLOMERULAR FILTRATION RATE 56.9 (>39); POTASSIUM SERUM 4.1 MEQ/L (3.5-5.1); TOTAL PROTEIN 6.9 GM/DL (6.4-8.2)
== END ==
LOC: M SFHCPLAZ 11:15
PROVIDERS: ATTEND Internal Medicine Rheumatology
DX: M06.9 Rheumatoid arthritis, unspecified (principal)

== ENCOUNTER → 2018-10-19 | Outpatient (CLI) | payer MEDICARE, OTHER, MEDICAID ==
--- NOTE | 2018-10-29 00:30 | ECWPNPC ---
PATIENT NAME: ARLINE NEAL : 1940 GENDER: FEMALE VISIT DATE: 10/19/2018 DISCHARGE DATE: 10/19/18 1415 VISIT LOCKED DATE TIME: PHYSICIAN: LUDIVINA BACON MD RESOURCE: LUDIVINA BACON MD REASON FOR APPOINTMENT 1. CERVICAL DDD HISTORY OF PRESENT ILLNESS HISTORY OF PRESENT ILLNESS: PAIN THE PATIENT DESCRIBES THE PAIN... 77 YEAR OLD FEMALE PATIENT WITH A HISTORY OF CHRONIC NECK PAIN. THE PATIENT DESCRIBES THE PAIN SHOOTING AND INTERMITTENT WITH A PAIN SCORE OF 7-10/10 DEPENDING ON PHYSICAL ACTIVITY. THE PATIENT SAYS HER PAIN STARTS IN HER NECK AND RADIATES DOWN HER ARMS. THE PATIENT SAYS THAT SHE HAS HAD THIS PAIN FOR SEVERAL YEARS. THE PATIENT STATES THAT THE PAIN WAKES HER UP AT NIGHT. THE PATIENT IS CURRENTLY USING TRAMADOL UP TO 4 TABLETS PER DAY TO AID IN PAIN RELIEF. THE PATIENT IS ALSO CURRENTLY USING ELIQUIS. PATIENT DENIES UNEXPLAINABLE WEIGHT LOSS, FEVER, CHILLS, NEW CHANGES ON HER URINARY OR BOWEL CONTROL. FALL RISK SCREENING: SCREENING :NO FALLS REPORTED IN THE LAST YEAR CURRENT MEDICATIONS TAKING LEVOTHYROXINE SODIUM 88 MCG TABLET 1 TABLET ON AN EMPTY STOMACH IN THE MORNING ORALLY ONCE A DAY TAKING PRAVASTATIN SODIUM 40 MG TABLET 1 TABLET ORALLY ONCE A DAY TAKING TRAMADOL HCL 50 MG TABLET 1 TAB ORALLY EVERY 6 HOURS NEEDED/MMD#4 TAKING ALLOPURINOL 300 MG TABLET 1 TABLET ORALLY ONCE A DAY TAKING VITAMIN D 1000 UNIT TABLET 1 TABLET ORALLY ONCE A WEEK TAKING OMEPRAZOLE 40 MG CAPSULE DELAYED RELEASE 1 CAPSULE ORALLY ONCE A DAY TAKING METOPROLOL SUCCINATE ER 25 MG TABLET EXTENDED RELEASE 24 HOUR 1 TABLET ORALLY ONCE A DAY TAKING RANITIDINE HCL 150 MG CAPSULE 1 CAPSULE AT BEDTIME ORALLY ONCE A DAY TAKING LAUREN ALLERGY 180 MG TABLET 1 TABLET NEEDED ORALLY ONCE A DAY TAKING HUMIRA PEN 40 MG/0.8ML KIT 0.8 ML SUBCUTANEOUS EVERY 2 WKS, NOTES: DUE TODAY 09/26/18 TAKING FERROUS GLUCONATE 324 (38 FE) MG TABLET TAKE ONE TABLET BY MOUTH EVERY DAY ORAL TAKING DICLOFENAC SODIUM 1 % GEL APPLY 2 GRAMS TOPICALLY FOUR TIMES A DAY NEEDED TO PAINFUL JOINT TRANSDERMAL TAKING FOLIC ACID 1 MG TABLET 1 TABLET ORALLY ONCE A DAY TAKING METHOTREXATE 2.5 MG TABLET 3 TABLETS ORALLY ONCE A WEEK TAKING MULTIVITAL TAKING SENOKOT 8.6 MG TABLET 2 TABLETS AT BEDTIME NEEDED ORALLY ONCE A DAY TAKING NYSTATIN - POWDER DIRECTED TAKING NITROSTAT 0.4 MG TABLET SUBLINGUAL DIRECTED SUBLINGUAL TAKING LOTRISONE 1-0.05 % CREAM 1 APPLICATION TO AFFECTED AREA EXTERNALLY TWICE A DAY TAKING VOLTAREN 1 % GEL DIRECTED TRANSDERMAL TAKING CLOTRIMAZOLE 1 % CREAM 1 APPLICATION TO AFFECTED AREA EXTERNALLY TWICE A DAY TAKING AZELASTINE HCL 0.1 % SOLUTION 1 PUFF IN EACH NOSTRIL NASALLY TWICE A DAY TAKING FOLIC ACID 1 MG TABLET ORALLY DAILY, NOTES: DUPLICATE TAKING LISINOPRIL 10 MG TABLET 1 TABLET ORALLY ONCE A DAY TAKING TYLENOL EXTRA STRENGTH 500 MG TABLET 2 TABLETS NEEDED ORALLY EVERY 6 HRS TAKING FUROSEMIDE 40 MG TABLET ORAL TAKING POTASSIUM CHLORIDE ANH ER 20 MEQ TABLET EXTENDED RELEASE ORAL TAKING MECLIZINE HCL 12.5 MG TABLET 2 TABLETS NEEDED ORALLY TWICE DAILY TAKING CARVEDILOL 12.5 MG TABLET 1 TABLET ORAL TWICE DAILY TAKING ELIQUIS 5 MG TABLET 1 TABLET ORAL TWICE DAILY DISCONTINUED CIPROFLOXACIN HCL 500 MG TABLET ORAL DISCONTINUED HYDROXYCHLOROQUINE SULFATE 200 MG TABLET ORAL DISCONTINUED [id number] 3.5-12260-1.1 OINTMENT OPHTHALMIC DISCONTINUED LIDODERM 5 % PATCH 1 PATCH TO SKIN REMOVE AFTER 12 HOURS EXTERNALLY ONCE A DAY MEDICATION LIST REVIEWED AND RECONCILED WITH THE PATIENT PAST MEDICAL HISTORY HYPERTENSION HIGH CHOLESTEROL RHEUMATOID ARTHRITIS HYPOTHYROID GERD GOUT PANCREATITIS CAD, HEART ATTACK 06/2015 CONGESTIVE HEART FAILURE ALLERGIES ASPIRIN: NAUSEA/VOMITING - SIDE EFFECTS PENICILLIN (FOR ALLERGIES USE ONLY): HIVES - ALLERGY SULFA (FOR ALLERGY USE ONLY): HIVES - ALLERGY CODEINE PHOSPHATE (FOR ALLERGIES USE ONLY): HIVES - ALLERGY SURGICAL HISTORY PACEMAKER OPEN HEART SURGERY HYSTERECTOMY TOTAL KNEE REPLACEMENTS BILATERAL LEFT TOTAL ELBOW REPLACEMENT CHOLECYSTECTOMY 2017 FAMILY HISTORY FATHER: , RA, DIAGNOSED WITH HEART DISEASE MOTHER: , SKIN CANCER, CANCER SON(S): SON (1) HEART DISEASE, HEART DISEASE 2 SON(S) . 1 SISTER WITH ALZHEIMER\'S\N1 SISTER WITH BREAST CANCER. SOCIAL HISTORY GENERAL: TOBACCO USE ARE YOU A:NONSMOKER PAIN CLINIC PFS, CLERGY, PUBLIC HEALTH REFERRALS HAS THE PATIENT BEEN EDUCATED REGARDING HIS/HER PLAN OF CARE?YES HAS THE PATIENT BEEN EDUCATED REGARDING PAIN, THE RISK FOR PAIN, THE IMPORTANCE OF EFFECTIVE PAIN MANAGEMENT, AND THE PAIN ASSESSMENT PROCESS?YES LATEX QUESTIONNAIRE LATEX ALLERGY : HAVE YOU EVER DEVELOPED ANY TYPE OF REACTION AFTER HANDLING LATEX PRODUCTS SUCH RUBBER GLOVES, CONDOMS, DIAPHRAGMS, BALLOONS, SOCKS, OR UNDERWEAR?NO LATEX ALLERGY : HAVE YOU EVER DEVELOPED ANY TYPE OF REACTION DURING OR AFTER DENTAL APPOINTMENT, VAGINAL/RECTAL EXAMINATION, SURGICAL PROCEDURE, OR ANY OTHER EXPOSURE?NO LATEX RISK : HAVE YOU EVER HAD ANY DIFFICULTY BREATHING OR HIVES AFTER EATING OR HANDLING ANY FRUITS, OR VEGETABLES; SUCH KIWI, BANANAS, STONE FRUITS, OR CHESTNUTSNO LATEX RISK : DO YOU HAVE A PREVIOUS PERSONAL HISTORY OF MORE THAN NINE SURGERIES, SPINA BIFIDA, OR REPEATED CATHERTIZATIONS? NO LATEX RISK : ARE YOU FREQUENTLY EXPOSED TO LATEX PRODUCTS IN YOUR OCCUPATION?NO DATE ASKED : 09/26/2018 CAFFEINE CAFFEINE USE?YES HOW OFTEN AND HOW MUCH? 1 CUP COFFEE DAILY, OCCASIONAL TEA ADVANCE DIRECTIVE ADVANCE DIRECTIVE DISCUSSED WITH PATIENT:YES DECLINED SABIANIST [id number] PROTESTANT LANGUAGE LANGUAGES SPOKEN:INDONESIAN NEW PATIENT PAIN DIARY TODAY'S VISIT NOTES, FROM 0-10, WHAT LEVEL IS YOUR PAIN TODAY? 0. 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 CONSTITUTIONAL: ANY CHANGE IN YOUR MEDICAL CONDITION? NO . CHILLS NO . FEVER NO . INFECTION: DO YOU HAVE NEW INFECTIONS? YES, UTI RESOLVED W ABX . DO YOU HAVE HISTORY OF MRSA? NO . MUSCULOSKELETAL: ANY NEW PATTERNS OF PAIN OR NUMBNESS? YES, NUMBNESS TO HANDS . GASTROENTEROLOGY: ANY NEW CHANGE IN BOWEL CONTROL? NO . GENITOURINARY: ANY NEW CHANGE IN BLADDER CONTROL? NO . IS THERE A CHANCE YOU COULD BE ? NO . HEMATOLOGY/LYMPH: DO YOU TAKE ANY BLOOD THINNERS? (FOR EXAMPLE- COUMADIN, PLAVIX, AGGRENOX, PLATEL, PRADAXA, OR XARELTO) NO . WHEN WAS YOUR LAST DOSE? DATE: TIME: . NEUROLOGY: HAVE YOU FALLEN IN THE PAST 12 MONTHS? NO . ANY NEW EXTREMITY NUMBNESS OR WEAKNESS? NO . CARDIOLOGY: DO YOU HAVE A PACEMAKER OR DEFIBRILLATOR? YES, PACEMAKER . RESPIRATORY: HAVE YOU BEEN SICK IN THE PAST WEEK? YES, UTI RESOLVED W ABX . FEVER NO . FLU LIKE SYMPTOMS? NO . COUGH NO . INTEGUMENTARY: DO YOU HAVE ANY RASHES OR OPEN SORES? NO . ALLERGIC/IMMUNO: ARE YOU ALLERGIC TO IV DYE? NO . ANY NEW ALLERGIES? NO . PSYCHIATRIC: DO YOU HAVE THOUGHTS OF HURTING YOURSELF OR SOMEONE ELSE? NO . ARE YOU ABUSED, NEGLECTED, OR IN AN UNSAFE ENVIRONMENT? NO . ENDOCRINOLOGY: ARE YOU DIABETIC? NO . OTHER: DO YOU NEED ANY PRESCRIPTIONS? NO . IF YES, PLEASE LIST: ____ . ANY NEW PROBLEMS WITH YOUR MEDICATIONS? NO . WHEN DID YOU LAST EAT? ____ . WHEN DID YOU LAST DRINK? ____ . WHAT DID YOU LAST DRINK? ____ . NAME OF PERSON DRIVING YOU HOME? ____ . DO YOU HAVE ANY OTHER QUESTIONS OR CONCERNS NO . VITAL SIGNS WT 167.4 LBS, HT 64.5 IN, BMI 28.29 INDEX, BP 176/78 MM HG, HR 79 /MIN, RR 18 /MIN, TEMP 97.3 F, OXYGEN SAT % 94%, NA INITIALS SC 13:00. EXAMINATION GENERAL EXAMINATION: PATIENT IS ALERT O X 3 AND COOPERATIVE. LUNGS CLEAR, TO AUSCULTATION. HEART: NO MURMURS OR GALLOPS; FACIAL CRANIAL NERVES ARE GROSSLY NORMAL. GOOD SYMMETRY OF FACIAL MUSCLE MOVEMENT. NORMAL VISUAL MERRILL. TENDERNESS IN THE NECK AREA. PRESENCE OF TRIGGER POINTS AND BANDS OF TISSUE WITH RESTRICTION OF MOVEMENT OF THE NECK. MRI OF THE CERVICAL SPINE DONE ON 07/27/2017 SHOWS BULGING DISCS AND FACET ARTHROPATHY CHANGES. ASSESSMENTS MYALGIA, OTHER SITE - M79.18 (PRIMARY) CERVICAL DISC DISORDER WITH RADICULOPATHY OF CERVICAL REGION - M50.10 SPONDYLOSIS OF CERVICAL REGION WITHOUT MYELOPATHY OR RADICULOPATHY - M47.812 TREATMENT MYALGIA, OTHER SITE CLINICAL NOTES: WE DISCUSSED SEVERAL ISSUES WITH MRS. NEAL'S PAIN MANAGEMENT CASE. I WILL START THE PATIENT ON TIZANIDINE AT NIGHT FOR SPASMS AND PAIN. I WILL ALSO REQUEST A CLEARANCE FROM THE PATIENT'S PRIMARY CARE PHYSICIAN TO STOP THE ELIQUIS FOR INJECTIONS IN THE FUTURE. THE PATIENT MAY CONSIDER TRYING GABAPENTIN AND A TRIGGER POINT INJECTION IN THE FUTURE. THE PATIENT WILL FOLLOW UP IN A FEW WEEKS. INSTRUCTIONS WERE GIVEN, QUESTIONS WERE ANSWERED, PATIENT REPORTS UNDERSTANDING AND AGREES WITH THE PLAN. I, SEAN SMILEY, DOCUMENTED THE ABOVE INFORMATION ACTING A SCRIBE FOR DR. BACON. I HAVE REVIEWED THE ABOVE DOCUMENT, WRITTEN BY SEAN MARTIN AND I VERIFY THAT IT IS ACCURATE. DEAR NEW DUBOSE PA-C:THANK YOU FOR YOUR KIND REFERRAL OF MRS. NEAL. IF YOU WANT TO DISCUSS HER CASE WITH ME PLEASE CALL ME AT THE PAIN CENTER AT [phone]. SINCERELY,LUDIVINA BACON, [facility] . OTHERS START TIZANIDINE HCL TABLET, 2 MG, 1 TABLET NEEDED, ORALLY FOR SPASMS AND PAIN, BEFORE BEDTIME MDD1, 30 DAYS, 30, REFILLS 1 PREVENTIVE MEDICINE PAIN CLINIC TEACHING: MEDICATIONS TIZANIDINE HANDOUT PRINTED REVIEWED AND GIVEN TO PT. EM. PROCEDURE CODES FA211 ESTABILISHED PATIENT [facility] FACILITY CHARGE G8427 CURRENT MEDS W/DOSAGES DOCUMENTED G8730 PAIN ASSESS POS TOOL F/U PLAN DOC DISPOSITION & COMMUNICATION FOLLOW UP 6-8 WEEKS (REASON: NECK PAIN) ELECTRONICALLY SIGNED BY LUDIVINA BACON MD, MD ON 10/28/2018 AT 09:49 AM EDT DISCLAIMER : THIS IS A VISIT SUMMARY EXTRACTED FROM THE [employer] CHART. IT IS NOT A COPY OF THE [employer] PROGRESS NOTE. MTDD
== END ==
LOC: M PAIN 12:30
PROVIDERS: ATTEND Anesthesiology
DX: M79.18 Myalgia, other site (principal); M50.10 Cervical disc disorder with radiculopathy, unspecified cervical region; M47.812 Spondylosis without myelopathy or radiculopathy, cervical region; I11.0 Hypertensive heart disease with heart failure; E78.00 Pure hypercholesterolemia, unspecified; M06.9 Rheumatoid arthritis, unspecified; E03.9 Hypothyroidism, unspecified; K21.9 Gastro-esophageal reflux disease without esophagitis; Z79.4 Long term (current) use of insulin; Z79.01 Long term (current) use of anticoagulants; Z79.899 Other long term (current) drug therapy; Z88.0 Allergy status to penicillin; Z88.2 Allergy status to sulfonamides; Z88.5 Allergy status to narcotic agent; Z88.6 Allergy status to analgesic agent; Z87.39 Personal history of other diseases of the musculoskeletal system and connective tissue; Z86.79 Personal history of other diseases of the circulatory system; Z95.0 Presence of cardiac pacemaker; Z96.653 Presence of artificial knee joint, bilateral; Z96.622 Presence of left artificial elbow joint

== ENCOUNTER → 2018-11-27 | Outpatient (REF) | payer MEDICARE, MEDICAID ==
[~2018-11-27] MED LIST changes: -MECL12.575 PO; +MECL12.589 PO; -OMEP40CA2 PO; +OMEP40CA97 PO; +RANI-397 PO; -RANI1TAB6 PO
[2018-11-27 18:57] LABS: BASO # 0.1 10^3/uL (0.0-0.2); BASO % 0.9 % (0.0-1.0); EOS # 0.4 10^3/uL (0.0-0.50); EOS % 3.4 % (0.0-3.0); HEMOGLOBIN 8.4 g/dl (12.0-15.5); LYMPH # 3.1 10^3/uL (1.5-4.5); MEAN CORPUSCULAR HEMOGLOBIN 33.9 pg (27.0-33.0); MEAN CORPUSCULAR HGB CONC 32.3 g/dl (32.0-36.5); MEAN CORPUSCULAR VOLUME 104.8 fl (80.0-96.0); MONO # 1.4 10^3/uL (0.0-0.8); MONO % 11.4 % (0.0-5.0); NEUTROPHILS # 6.9 10^3/uL (1.8-7.7); NEUTROPHILS % 56.2 % (36.0-66.0); PLATELET COUNT, AUTOMATED 289 10^3/uL (150-450); RED BLOOD COUNT 2.48 10^6/uL (4.00-5.40); WHITE BLOOD COUNT 12.3 10^3/uL (4.0-10.0)
[2018-11-27 19:03] LABS: BILIRUBIN,TOTAL 0.3 MG/DL (0.2-1.0); C REACTIVE PROTEIN QUANTITATIV 0.3 MG/DL (0.00-0.30); CALCIUM LEVEL 8.6 MG/DL (8.8-10.2); CREATININE FOR GFR 1.01 MG/DL (0.55-1.30); GLOMERULAR FILTRATION RATE 56.1 (>32); POTASSIUM SERUM 4.2 MEQ/L (3.5-5.1); TOTAL PROTEIN 6.7 GM/DL (6.4-8.2)
[2018-11-27 20:06] LABS: ERYTHROCYTE SEDIMENTATION RATE 65 mm/hr (0-30)
== END ==
LOC: M SFHCPLAZ 15:11
PROVIDERS: ATTEND Internal Medicine Rheumatology
DX: M06.9 Rheumatoid arthritis, unspecified (principal)
CPT/HCPCS: 36415; 80053; 85025; 85652; 86140; G0463

== ENCOUNTER → 2019-01-09 | Outpatient (CLI) | payer MEDICARE, MEDICAID ==
[~2019-01-09] MED LIST changes: +MECL12.575 PO; -MECL12.589 PO; +OMEP40CA2 PO; -OMEP40CA97 PO; -RANI-397 PO; +RANI1TAB6 PO
--- NOTE | 2019-01-11 00:24 | ECWPNPC ---
PATIENT NAME: ARLINE NEAL : 1940 GENDER: FEMALE VISIT DATE: 01/09/2019 DISCHARGE DATE: 01/09/19 1127 VISIT LOCKED DATE TIME: PHYSICIAN: GORDON BABIN RESOURCE: GORDON BABIN REASON FOR APPOINTMENT 1. CERVICAL DDD HISTORY OF PRESENT ILLNESS HISTORY OF PRESENT ILLNESS: PAIN THE PATIENT DESCRIBES THE PAIN... 78 YEAR OLD FEMALE IN FOR CHRONIC PAIN FOLLOW UP. SHE RATES HER PAIN AT AN 8/10 CURRENTLY AND DESCRIBES IT SHARP AND BURNING. SHE DENIES MED SIDE EFFECTS AND FEELS THEY ARE HELPING. FALL RISK SCREENING: SCREENING :NO FALLS REPORTED IN THE LAST YEAR CURRENT MEDICATIONS TAKING TIZANIDINE HCL 2 MG TABLET 1 TABLET NEEDED ORALLY FOR SPASMS AND PAIN BEFORE BEDTIME MDD1 TAKING LEVOTHYROXINE SODIUM 88 MCG TABLET 1 TABLET ON AN EMPTY STOMACH IN THE MORNING ORALLY ONCE A DAY TAKING PRAVASTATIN SODIUM 40 MG TABLET 1 TABLET ORALLY ONCE A DAY TAKING TRAMADOL HCL 50 MG TABLET 1 TAB ORALLY EVERY 6 HOURS NEEDED/MMD#4 TAKING ALLOPURINOL 300 MG TABLET 1 TABLET ORALLY ONCE A DAY TAKING VITAMIN D 1000 UNIT TABLET 1 TABLET ORALLY ONCE A WEEK TAKING OMEPRAZOLE 40 MG CAPSULE DELAYED RELEASE 1 CAPSULE ORALLY ONCE A DAY TAKING METOPROLOL SUCCINATE ER 25 MG TABLET EXTENDED RELEASE 24 HOUR 1 TABLET ORALLY ONCE A DAY TAKING RANITIDINE HCL 150 MG CAPSULE 1 CAPSULE AT BEDTIME ORALLY ONCE A DAY TAKING LAUREN ALLERGY 180 MG TABLET 1 TABLET NEEDED ORALLY ONCE A DAY TAKING FERROUS GLUCONATE 324 (38 FE) MG TABLET TAKE ONE TABLET BY MOUTH EVERY DAY ORAL TAKING DICLOFENAC SODIUM 1 % GEL APPLY 2 GRAMS TOPICALLY FOUR TIMES A DAY NEEDED TO PAINFUL JOINT TRANSDERMAL TAKING METHOTREXATE 2.5 MG TABLET 3 TABLETS ORALLY ONCE A WEEK TAKING MULTIVITAL TAKING SENOKOT 8.6 MG TABLET 2 TABLETS AT BEDTIME NEEDED ORALLY ONCE A DAY TAKING NYSTATIN - POWDER DIRECTED TAKING NITROSTAT 0.4 MG TABLET SUBLINGUAL DIRECTED SUBLINGUAL TAKING LOTRISONE 1-0.05 % CREAM 1 APPLICATION TO AFFECTED AREA EXTERNALLY TWICE A DAY TAKING VOLTAREN 1 % GEL DIRECTED TRANSDERMAL TAKING CLOTRIMAZOLE 1 % CREAM 1 APPLICATION TO AFFECTED AREA EXTERNALLY TWICE A DAY TAKING AZELASTINE HCL 0.1 % SOLUTION 1 PUFF IN EACH NOSTRIL NASALLY TWICE A DAY TAKING FOLIC ACID 1 MG TABLET ORALLY DAILY, NOTES: DUPLICATE TAKING LISINOPRIL 10 MG TABLET 1 TABLET ORALLY ONCE A DAY TAKING TYLENOL EXTRA STRENGTH 500 MG TABLET 2 TABLETS NEEDED ORALLY EVERY 6 HRS TAKING FUROSEMIDE 40 MG TABLET ORAL TAKING POTASSIUM CHLORIDE ANH ER 20 MEQ TABLET EXTENDED RELEASE ORAL TAKING MECLIZINE HCL 12.5 MG TABLET 2 TABLETS NEEDED ORALLY TWICE DAILY TAKING CARVEDILOL 12.5 MG TABLET 1 TABLET ORAL TWICE DAILY TAKING METHOTREXATE 2.5 MG TABLET 5 TABLETS ORALLY ONCE A WEEK TAKING FOLIC ACID 1 MG TABLET 1 TABLET ORALLY BID DISCONTINUED ELIQUIS 5 MG TABLET 1 TABLET ORAL TWICE DAILY MEDICATION LIST REVIEWED AND RECONCILED WITH THE PATIENT PAST MEDICAL HISTORY HYPERTENSION HIGH CHOLESTEROL RHEUMATOID ARTHRITIS HYPOTHYROID GERD GOUT PANCREATITIS CAD, HEART ATTACK 06/2015 CONGESTIVE HEART FAILURE ALLERGIES ASPIRIN: NAUSEA/VOMITING - SIDE EFFECTS PENICILLIN (FOR ALLERGIES USE ONLY): HIVES - ALLERGY SULFA (FOR ALLERGY USE ONLY): HIVES - ALLERGY CODEINE PHOSPHATE (FOR ALLERGIES USE ONLY): HIVES - ALLERGY SURGICAL HISTORY PACEMAKER OPEN HEART SURGERY HYSTERECTOMY TOTAL KNEE REPLACEMENTS BILATERAL LEFT TOTAL ELBOW REPLACEMENT CHOLECYSTECTOMY 2017 FAMILY HISTORY FATHER: , RA, DIAGNOSED WITH HEART DISEASE MOTHER: , SKIN CANCER, CANCER SON(S): SON (1) HEART DISEASE, HEART DISEASE 2 SON(S) . 1 SISTER WITH ALZHEIMER\'S\N1 SISTER WITH BREAST CANCER. SOCIAL HISTORY GENERAL: TOBACCO USE ARE YOU A:NONSMOKER PAIN CLINIC PFS, CLERGY, PUBLIC HEALTH REFERRALS HAS THE PATIENT BEEN EDUCATED REGARDING HIS/HER PLAN OF CARE?YES HAS THE PATIENT BEEN EDUCATED REGARDING PAIN, THE RISK FOR PAIN, THE IMPORTANCE OF EFFECTIVE PAIN MANAGEMENT, AND THE PAIN ASSESSMENT PROCESS?YES LATEX QUESTIONNAIRE LATEX ALLERGY : HAVE YOU EVER DEVELOPED ANY TYPE OF REACTION AFTER HANDLING LATEX PRODUCTS SUCH RUBBER GLOVES, CONDOMS, DIAPHRAGMS, BALLOONS, SOCKS, OR UNDERWEAR?NO LATEX ALLERGY : HAVE YOU EVER DEVELOPED ANY TYPE OF REACTION DURING OR AFTER DENTAL APPOINTMENT, VAGINAL/RECTAL EXAMINATION, SURGICAL PROCEDURE, OR ANY OTHER EXPOSURE?NO DATE ASKED : 11/27/2018 LATEX RISK : HAVE YOU EVER HAD ANY DIFFICULTY BREATHING OR HIVES AFTER EATING OR HANDLING ANY FRUITS, OR VEGETABLES; SUCH KIWI, BANANAS, STONE FRUITS, OR CHESTNUTSNO LATEX RISK : DO YOU HAVE A PREVIOUS PERSONAL HISTORY OF MORE THAN NINE SURGERIES, SPINA BIFIDA, OR REPEATED CATHERIZATIONS? NO LATEX RISK : ARE YOU FREQUENTLY EXPOSED TO LATEX PRODUCTS IN YOUR OCCUPATION?NO CAFFEINE CAFFEINE USE?YES HOW OFTEN AND HOW MUCH? 1 CUP COFFEE DAILY, OCCASIONAL TEA ADVANCE DIRECTIVE ADVANCE DIRECTIVE DISCUSSED WITH PATIENT:YES DECLINED MANDAEN [id number] PROTESTANT LANGUAGE LANGUAGES SPOKEN:SAMOAN NEW PATIENT PAIN DIARY TODAY'S VISIT NOTES, FROM 0-10, WHAT LEVEL IS YOUR PAIN TODAY? 0. 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 CONSTITUTIONAL: ANY CHANGE IN YOUR MEDICAL CONDITION? NO . CHILLS NO . FEVER NO . INFECTION: DO YOU HAVE NEW INFECTIONS? NO . DO YOU HAVE HISTORY OF MRSA? NO . MUSCULOSKELETAL: ANY NEW PATTERNS OF PAIN OR NUMBNESS? NO . GASTROENTEROLOGY: ANY NEW CHANGE IN BOWEL CONTROL? YES, PT C/O DIARRHEA X 1 MONTH, SEES PCP FOR THIS, PLACED ON NEW MED, NOT SURE OF NAME, BUT IT HELPS . GENITOURINARY: ANY NEW CHANGE IN BLADDER CONTROL? NO . IS THERE A CHANCE YOU COULD BE ? NO . HEMATOLOGY/LYMPH: DO YOU TAKE ANY BLOOD THINNERS? (FOR EXAMPLE- COUMADIN, PLAVIX, AGGRENOX, PLATEL, PRADAXA, OR XARELTO) NO . WHEN WAS YOUR LAST DOSE? DATE: TIME: . NEUROLOGY: HAVE YOU FALLEN IN THE PAST 12 MONTHS? YES, FELL 2 WEEKS AGO FROM LOSS OF BALANCE, PT DENIES SEEKING MEDICAL TX FOR LEFT ELBOW INJURY . ANY NEW EXTREMITY NUMBNESS OR WEAKNESS? YES, BILAT LEGS AND HANDS ALL GONUMB AT NIGHT IN BED . CARDIOLOGY: DO YOU HAVE A PACEMAKER OR DEFIBRILLATOR? NO . RESPIRATORY: HAVE YOU BEEN SICK IN THE PAST WEEK? NO, DIARRHEA . FEVER NO . FLU LIKE SYMPTOMS? NO . COUGH NO . INTEGUMENTARY: DO YOU HAVE ANY RASHES OR OPEN SORES? NO . ALLERGIC/IMMUNO: ARE YOU ALLERGIC TO IV DYE? NO . ANY NEW ALLERGIES? NO . PSYCHIATRIC: DO YOU HAVE THOUGHTS OF HURTING YOURSELF OR SOMEONE ELSE? NO . ARE YOU ABUSED, NEGLECTED, OR IN AN UNSAFE ENVIRONMENT? NO . ENDOCRINOLOGY: ARE YOU DIABETIC? NO . OTHER: DO YOU NEED ANY PRESCRIPTIONS? NO . IF YES, PLEASE LIST: ____ . ANY NEW PROBLEMS WITH YOUR MEDICATIONS? NO . WHEN DID YOU LAST EAT? ____ . WHEN DID YOU LAST DRINK? ____ . WHAT DID YOU LAST DRINK? ____ . NAME OF PERSON DRIVING YOU HOME? ____ . DO YOU HAVE ANY OTHER QUESTIONS OR CONCERNS NO . VITAL SIGNS WT 169 LBS, HT 64.5 IN, BMI 28.56 INDEX, BP 144/66 MM HG, HR 76 /MIN, RR 18 /MIN, TEMP 97.6 F, OXYGEN SAT % 97%, NA INITIALS SC 11:03, REVIEWED BY: ANGELES. EXAMINATION GENERAL EXAMINATION: GENERALNO ACUTE DISTRESS, WELL NOURISHED AND HYDRATED. PSYCHAPPROPRIATE MOOD AND AFFECT . NECK:POINT TENDER ACROSS UPPER TRAPEZIUS. SKIN SHOWS NO ERYTHEMA, ECCHYMOSIS, INCREASED WARMTH, AND/OR SKIN ERUPTIONS. . LUNGS:CLEAR TO AUSCULTATION BILATERALLY, NO WHEEZES, RHONCHI, RALES. HEART:NO MURMURS, REGULAR RATE AND RHYTHM. ASSESSMENTS MYALGIA, OTHER SITE - M79.18 (PRIMARY) TREATMENT MYALGIA, OTHER SITE NOTES: TPI BILATERAL UPPER TRAPEZIUS. CLINICAL NOTES: 78 YEAR OLD FEMALE IN FOR CHRONIC PAIN FOLLOW UP. SHE ADMITS TO BEING TAKEN OFF HER ELIQUIS. GIVEN PRESENTING SYMPTOMS AND RESULTS OF PHYSICAL EXAMINATION RECOMMENDED TPI AND POST PROCEDURAL FOLLOW UP. PATIENT HAS EXPRESSED UNDERSTANDING OF AND WAS IN AGREEMENT WITH TREATMENT PLAN. GIVEN TIME TO ASK QUESTIONS AND EXPRESS CONCERNS. , ISTOP REGISTRY REVIEWED AND DEMONSTRATES COMPLLIANCE. (REF # [id number] ) BRINGS IN MEDICATIONS WHICH IS APPROPRIATE FOR WHAT WAS DISPENSED. RECENT URINE TOXICOLOGY REVIEWED. NO UNAUTHORIZED MEDICATIONS. NO ILLICIT SUBSTANCES AND PRESCRIBED MEDICATIONS WERE PRESENT. OTHERS NOTES: OPTIONS: TRIGGER POINT INJECTION MATERIAL WAS PRINTED. PROCEDURE CODES FA211 ESTABILISHED PATIENT [facility] CHARGE DISPOSITION & COMMUNICATION FOLLOW UP POST PROCEDURE (REASON: TPI BILATERAL UPPER TRAPEZIUS ) ELECTRONICALLY SIGNED BY POLO PATEL ON 01/10/2019 AT 08:41 AM EDT DISCLAIMER : THIS IS A VISIT SUMMARY EXTRACTED FROM THE [employer] CHART. IT IS NOT A COPY OF THE [employer] PROGRESS NOTE. MTDD
== END ==
LOC: M PAIN 11:00
PROVIDERS: ATTEND Family Medicine
DX: M79.18 Myalgia, other site (principal); I11.0 Hypertensive heart disease with heart failure; E78.00 Pure hypercholesterolemia, unspecified; M06.9 Rheumatoid arthritis, unspecified; E03.9 Hypothyroidism, unspecified; K21.9 Gastro-esophageal reflux disease without esophagitis; M10.9 Gout, unspecified; I25.10 Atherosclerotic heart disease of native coronary artery without angina pectoris; I50.9 Heart failure, unspecified; Z95.0 Presence of cardiac pacemaker; Z96.653 Presence of artificial knee joint, bilateral; Z96.622 Presence of left artificial elbow joint; Z88.0 Allergy status to penicillin; Z88.2 Allergy status to sulfonamides; Z88.5 Allergy status to narcotic agent; Z88.6 Allergy status to analgesic agent; Z79.899 Other long term (current) drug therapy

== ENCOUNTER → 2019-03-12 | Outpatient (CLI) | payer MEDICARE, MEDICAID ==
[~2019-03-12] MED LIST changes: +RANI-356 PO; -RANI1TAB6 PO
[2019-03-12 11:30] LABS: BASO % 0.4 % (0.0-1.0); EOS # 0.3 10^3/uL (0.0-0.5); EOS % 4.3 % (0.0-3.0); HEMATOCRIT 27.4 % (36.0-47.0); HEMOGLOBIN 8.9 g/dl (12.0-15.5); LYMPH # 2.8 10^3/uL (1.5-5.0); LYMPH % 37.6 % (24.0-44.0); MEAN CORPUSCULAR HEMOGLOBIN 33.2 pg (27.0-33.0); MEAN CORPUSCULAR HGB CONC 32.5 g/dl (32.0-36.5); MEAN CORPUSCULAR VOLUME 102.2 fl (80.0-96.0); MONO # 0.9 10^3/uL (0.0-0.8); MONO % 11.7 % (0.0-5.0); NEUTROPHILS # 3.4 10^3/uL (1.5-8.5); NEUTROPHILS % 45.6 % (36.0-66.0); PLATELET COUNT, AUTOMATED 211 10^3/uL (150-450); RED BLOOD COUNT 2.68 10^6/uL (4.00-5.40); WHITE BLOOD COUNT 7.4 10^3/uL (4.0-10.0)
[2019-03-12 12:01] LABS: ALBUMIN 3.1 GM/DL (3.2-5.2); ALT/SGPT 12 U/L (12-78); BILIRUBIN,TOTAL 0.4 MG/DL (0.2-1.0); BLOOD UREA NITROGEN 36 MG/DL (7-18); C REACTIVE PROTEIN QUANTITATIV < 0.30 MG/DL (0.00-0.30); CALCIUM LEVEL 8.6 MG/DL (8.8-10.2); CARBON DIOXIDE LEVEL 27 MEQ/L (21-32); CHLORIDE LEVEL 103 MEQ/L (98-107); CREATININE FOR GFR 1.16 MG/DL (0.55-1.30); GLOMERULAR FILTRATION RATE 47.9 (>32); GLUCOSE, FASTING 97 MG/DL (70-100); POTASSIUM SERUM 4.8 MEQ/L (3.5-5.1); SODIUM LEVEL 135 MEQ/L (136-145); TOTAL PROTEIN 6.8 GM/DL (6.4-8.2)
[2019-03-12 12:08] LABS: ERYTHROCYTE SEDIMENTATION RATE 64 mm/hr (0-30)
== END ==
LOC: M LAB 10:22
PROVIDERS: ATTEND Internal Medicine Rheumatology
DX: M06.9 Rheumatoid arthritis, unspecified (principal)

== ENCOUNTER → 2019-07-31 | Outpatient (REF) | payer MEDICARE, MEDICAID ==
[~2019-07-31] MED LIST changes: -MECL12.575 PO; +MECL12.589 PO; -OMEP40CA2 PO; +OMEP40CA97 PO; -RANI-356 PO; +RANI-397 PO
== END ==
LOC: M SFHCRHEU 11:34
PROVIDERS: ATTEND Internal Medicine
DX: M05.79 Rheumatoid arthritis with rheumatoid factor of multiple sites without organ or systems involvement (principal)

== ENCOUNTER → 2019-11-04 | Outpatient (CLI) | payer MEDICARE, MEDICAID ==
[2019-11-04 17:18] LABS: BASO # 0.1 10^3/uL (0.0-0.2); BASO % 0.4 % (0.0-1.0); EOS # 0.3 10^3/uL (0.0-0.5); EOS % 1.9 % (0.0-3.0); HEMOGLOBIN 10.3 g/dl (12.0-15.5); LYMPH # 3.5 10^3/uL (1.5-5.0); LYMPH % 26.1 % (24.0-44.0); MEAN CORPUSCULAR HGB CONC 32.2 g/dl (32.0-36.5); MEAN CORPUSCULAR VOLUME 99.4 fl (80.0-96.0); MONO % 7.3 % (0.0-5.0); NEUTROPHILS # 8.5 10^3/uL (1.5-8.5); NEUTROPHILS % 63.9 % (36.0-66.0); PLATELET COUNT, AUTOMATED 252 10^3/uL (150-450); RED BLOOD COUNT 3.22 10^6/uL (4.00-5.40); WHITE BLOOD COUNT 13.2 10^3/uL (4.0-10.0)
[2019-11-04 17:26] LABS: ALBUMIN 3.4 GM/DL (3.2-5.2); ALT/SGPT 15 U/L (12-78); BILIRUBIN,TOTAL 0.3 MG/DL (0.2-1.0); BLOOD UREA NITROGEN 31 MG/DL (7-18); C REACTIVE PROTEIN QUANTITATIV < 0.30 MG/DL (0.00-0.30); CALCIUM LEVEL 8.7 MG/DL (8.8-10.2); CARBON DIOXIDE LEVEL 25 MEQ/L (21-32); CHLORIDE LEVEL 104 MEQ/L (98-107); CREATININE FOR GFR 0.98 MG/DL (0.55-1.30); GLOMERULAR FILTRATION RATE 58.1 (>32); GLUCOSE, FASTING 94 MG/DL (70-100); POTASSIUM SERUM 4.5 MEQ/L (3.5-5.1); SODIUM LEVEL 134 MEQ/L (136-145); TOTAL PROTEIN 7.3 GM/DL (6.4-8.2)
[2019-11-04 18:49] LABS: ERYTHROCYTE SEDIMENTATION RATE 54 mm/hr (0-30)
[2019-11-06 09:52] LABS: HEPATITIS B SURFACE ANTIGEN NEGATIVE (NEGATIVE)
[2019-11-06 10:20] LABS: HEPATITIS C VIRUS ABY INDEX 0.3 INDEX (<0.8)
[2019-11-06 16:08] LABS: HEPATITIS B CORE ANTIBODY IGG Negative (Negative)
== END ==
LOC: M PLALAB 14:34
PROVIDERS: ATTEND Internal Medicine
DX: M05.9 Rheumatoid arthritis with rheumatoid factor, unspecified (principal)
CPT/HCPCS: 36415; 80053; 85025; 85652; 86140; 86480; 86704; 86803; 87340; G0463

== ENCOUNTER 2020-01-28 09:45 | Outpatient (CLI) | payer MEDICARE, MEDICAID ==
[~2020-01-28] VITALS: Ht 162.6 cm; Wt 62.7 kg
[2020-01-28] MEDS ORDERED: methylPREDNISolone 125MG 2ML VIAL IV PRN ×2 (10:00)
[2020-01-28] MEDS ORDERED: ABATACEPT 750 MG OVER 30 MINUTES IV ONE ×2 (10:00)
[2020-01-28] MEDS ORDERED: diphenhydrAMINE 25MG CAP PO ONE (10:00)
[2020-01-28] MEDS ORDERED: NS 1,000 ML IV SCH (10:00)
[2020-01-28] MEDS ORDERED: EPINEPHrine INJ 1 MG/ML 1ML AMP IM PRN ×2 (10:00)
[2020-01-28] MEDS ORDERED: ALBUTEROL SULFATE 2.5 MG/0.5 ML INH NEB SOLN INH PRN ×2 (10:00)
[2020-01-28] MEDS ORDERED: diphenhydrAMINE 50MG/ML VIAL (J1200) IV PRN ×2 (10:00)
[2020-01-28] MEDS ORDERED: ABATACEPT IV ONE ×6 (10:00)
[2020-01-28] MEDS ORDERED: LORATADINE 10 MG TAB PO ONE (10:00)
[2020-01-28] MEDS ORDERED: ACETAMINOPHEN TAB 650MG DOSE (2X325MG) PO ONE (10:00)
[2020-01-28] MEDS ORDERED: ACETAMINOPHEN 650MG ER TAB (TYLENOL ARTHRITIS) PO ONE (10:00)
[2020-01-28 10:40] VITALS: BP 185/100
[2020-01-28] MEDS ORDERED: diphenhydrAMINE 25MG CAP As Ordered ONE (10:55)
[2020-01-28] MEDS ORDERED: ACETAMINOPHEN TAB 650MG DOSE (2X325MG) As Ordered ONE (10:55)
[2020-01-28 11:43] VITALS: BP 178/90
== END 2020-01-28 12:00 | disposition home or self-care (01) ==
LOC: M INFU 09:45
PROVIDERS: ATTEND Internal Medicine Rheumatology
DX: M05.79 Rheumatoid arthritis with rheumatoid factor of multiple sites without organ or systems involvement (principal)
CPT/HCPCS: 96365; J0129

== ENCOUNTER 2020-02-21 12:26 | Outpatient (CLI) | payer MEDICARE, MEDICAID ==
[~2020-02-21] VITALS: Ht 162.6 cm; Wt 62.6 kg
[~2020-02-21 12:26] MED LIST changes: +ABATACEPT IV ONE; +ACETAMINOPHEN 650 MG PO PO ONE; +ACETAMINOPHEN TAB 650MG DOSE (2X325MG) PO ONE; +ALBUTEROL SULFATE 2.5 MG/0.5 ML INH NEB SOLN INH PRN; +EPINEPHrine INJ 1 MG/ML 1ML AMP IM PRN; +NS 1,000 ML IV SCH; +diphenhydrAMINE 25 MG PO PO ONE; +diphenhydrAMINE 25MG CAP PO ONE; +diphenhydrAMINE 50MG/ML VIAL (J1200) IV PRN; +methylPREDNISolone 125MG 2ML VIAL IV PRN
[2020-02-21] MEDS ORDERED: diphenhydrAMINE 50MG/ML VIAL (J1200) IV PRN (12:30)
[2020-02-21] MEDS ORDERED: ALBUTEROL SULFATE 2.5 MG/0.5 ML INH NEB SOLN INH PRN (12:30)
[2020-02-21] MEDS ORDERED: methylPREDNISolone 125MG 2ML VIAL IV PRN (12:30)
[2020-02-21] MEDS ORDERED: ABATACEPT IV ONE ×2 (12:30)
[2020-02-21] MEDS ORDERED: EPINEPHrine INJ 1 MG/ML 1ML AMP IM PRN (12:30)
[2020-02-21 12:35] VITALS: BP 134/72
[2020-02-21 14:35] VITALS: BP 148/69
== END 2020-02-21 14:35 | disposition home or self-care (01) ==
LOC: M INFU 12:26
PROVIDERS: ATTEND Internal Medicine Rheumatology
DX: M05.79 Rheumatoid arthritis with rheumatoid factor of multiple sites without organ or systems involvement (principal); Z88.0 Allergy status to penicillin; Z88.2 Allergy status to sulfonamides; Z88.8 Allergy status to other drugs, medicaments and biological substances; Z88.6 Allergy status to analgesic agent; Z91.018 Allergy to other foods
CPT/HCPCS: 96365; J0129

== ENCOUNTER 2020-03-06 12:07 | Outpatient (CLI) | payer MEDICARE, MEDICAID ==
[~2020-03-06] VITALS: Ht 162.6 cm; Wt 62.6 kg
[~2020-03-06 12:07] MED LIST changes: -ABATACEPT IV ONE; -ACETAMINOPHEN 650 MG PO PO ONE; -ACETAMINOPHEN TAB 650MG DOSE (2X325MG) PO ONE; -ALBUTEROL SULFATE 2.5 MG/0.5 ML INH NEB SOLN INH PRN; -EPINEPHrine INJ 1 MG/ML 1ML AMP IM PRN; -NS 1,000 ML IV SCH; -diphenhydrAMINE 25 MG PO PO ONE; -diphenhydrAMINE 25MG CAP PO ONE; -diphenhydrAMINE 50MG/ML VIAL (J1200) IV PRN; -methylPREDNISolone 125MG 2ML VIAL IV PRN
[2020-03-06 12:28] VITALS: BP 182/88
[2020-03-06] MEDS ORDERED: EPINEPHrine INJ 1 MG/ML 1ML AMP IM PRN (12:30)
[2020-03-06] MEDS ORDERED: ALBUTEROL SULFATE 2.5 MG/0.5 ML INH NEB SOLN INH PRN (12:30)
[2020-03-06] MEDS ORDERED: diphenhydrAMINE 50MG/ML VIAL (J1200) IV PRN (12:30)
[2020-03-06] MEDS ORDERED: methylPREDNISolone 125MG 2ML VIAL IV PRN (12:30)
[2020-03-06] MEDS: ABATACEPT IV ONE ×2 (13:02)
[2020-03-06] MEDS: diphenhydrAMINE 25MG CAP PO ONE (13:04)
[2020-03-06] MEDS: ACETAMINOPHEN TAB 650MG DOSE (2X325MG) PO ONE (13:04)
[2020-03-06 13:39] VITALS: BP 195/94
== END 2020-03-06 13:40 | disposition home or self-care (01) ==
LOC: M INFU 12:07
PROVIDERS: ATTEND Internal Medicine Rheumatology
DX: M05.79 Rheumatoid arthritis with rheumatoid factor of multiple sites without organ or systems involvement (principal)
CPT/HCPCS: 96365; J0129

== ENCOUNTER 2020-06-01 12:29 | Outpatient (CLI) | payer MEDICARE, MEDICAID ==
[~2020-06-01] VITALS: Ht 162.6 cm; Wt 71.3 kg
[~2020-06-01 12:29] MED LIST changes: +ALBUTEROL SULFATE 2.5 MG/0.5 ML INH NEB SOLN INH PRN; +EPINEPHrine INJ 1 MG/ML 1ML AMP IM PRN; -MECL12.589 PO; +MECL12.590 PO; +diphenhydrAMINE 50MG/ML VIAL (J1200) IV PRN; +methylPREDNISolone 125MG 2ML VIAL IV PRN
[2020-06-01 13:30] LABS: BASO # 0.1 10^3/uL (0.0-0.2); BASO % 0.4 % (0.0-1.0); EOS # 0.3 10^3/uL (0.0-0.5); EOS % 2.8 % (0.0-3.0); HEMATOCRIT 32.3 % (36.0-47.0); HEMOGLOBIN 10.6 g/dl (12.0-15.5); LYMPH # 3.3 10^3/uL (1.5-5.0); LYMPH % 29.4 % (24.0-44.0); MEAN CORPUSCULAR HEMOGLOBIN 33.5 pg (27.0-33.0); MEAN CORPUSCULAR HGB CONC 32.8 g/dl (32.0-36.5); MEAN CORPUSCULAR VOLUME 102.2 fl (80.0-96.0); MONO # 0.8 10^3/uL (0.0-0.8); NEUTROPHILS # 6.7 10^3/uL (1.5-8.5); NEUTROPHILS % 59.7 % (36.0-66.0); PLATELET COUNT, AUTOMATED 209 10^3/uL (150-450); RED BLOOD COUNT 3.16 10^6/uL (4.00-5.40); WHITE BLOOD COUNT 11.2 10^3/uL (4.0-10.0)
[2020-06-01 13:47] VITALS: BP 108/67
[2020-06-01 13:54] LABS: ERYTHROCYTE SEDIMENTATION RATE 56 mm/hr (0-30)
[2020-06-01 13:58] LABS: ALBUMIN 3.5 GM/DL (3.2-5.2); ALT/SGPT 12 U/L (12-78); BILIRUBIN,TOTAL 0.3 MG/DL (0.2-1.0); BLOOD UREA NITROGEN 26 MG/DL (7-18); CALCIUM LEVEL 8.8 MG/DL (8.8-10.2); CARBON DIOXIDE LEVEL 26 MEQ/L (21-32); CHLORIDE LEVEL 106 MEQ/L (98-107); CREATININE FOR GFR 1.21 MG/DL (0.55-1.30); GLOMERULAR FILTRATION RATE 45.5 (>32); GLUCOSE, FASTING 107 MG/DL (70-100); POTASSIUM SERUM 4.5 MEQ/L (3.5-5.1); SODIUM LEVEL 140 MEQ/L (136-145); TOTAL PROTEIN 6.9 GM/DL (6.4-8.2)
[2020-06-01] MEDS ORDERED: diphenhydrAMINE 25MG CAP PO ONE (14:15)
[2020-06-01] MEDS ORDERED: ACETAMINOPHEN 500 MG TAB PO ONE (14:15)
[2020-06-01] MEDS ORDERED: NS 1,000 ML IV SCH (14:30)
[2020-06-01] MEDS ORDERED: ABATACEPT 750 MG OVER 30 MINUTES IV ONE ×2 (14:30)
[2020-06-01] MEDS ORDERED: ACETAMINOPHEN TAB 650MG DOSE (2X325MG) PO ONE (14:30)
[2020-06-01 15:30] VITALS: BP 192/94
[2020-06-01 20:24] LABS: C REACTIVE PROTEIN QUANTITATIV < 0.30 MG/DL (0.00-0.30)
== END 2020-06-01 15:30 | disposition home or self-care (01) ==
LOC: M INFU 12:29
PROVIDERS: ATTEND Internal Medicine Rheumatology
DX: M05.79 Rheumatoid arthritis with rheumatoid factor of multiple sites without organ or systems involvement (principal)
CPT/HCPCS: 36415; 80053; 85025; 85652; 86140; 96365; J0129